=== PATIENT | female | born 1990 | race Caucasian/White ===

== ENCOUNTER → 2016-06-06 | Outpatient (CLI) | payer BC, OTHER ==
[~2016-06-06] MED LIST: ADVIN25/60 INH; ALBUAER19 INH; CYAN10005 PO; ERGO1CAP35 PO
== END | disposition home or self-care (01) ==
LOC: C.RDSM 16:30
PROVIDERS: ATTEND Orthopaedic Surgery Sports Medicine
DX: M79.644 Pain in right finger(s) (principal)

== ENCOUNTER → 2016-06-13 | Outpatient (CLI) | payer BC, OTHER | END | disposition home or self-care (01) | LOC: C.LAB 16:51 | PROVIDERS: ATTEND Internal Medicine | DX: R94.6 Abnormal results of thyroid function studies (principal) ==

== ENCOUNTER → 2016-12-20 | Outpatient (CLI) | payer BC, OTHER ==
--- NOTE | 2016-12-20 14:05 | DIAGNOSTIC IMAGING REPORT ---
LEFT FOOT MIN 3 VIEWS CLINICAL HISTORY: LEFT FOOT PAIN pain COMPARISON: None. DISCUSSION: The bones and joint spaces appear intact. There is no evidence of fracture, dislocation or bony disease. There is no evidence for soft tissue swelling. IMPRESSION: Negative study. The above report was generated using voice recognition software. It may contain grammatical, syntax or spelling errors. Electronically signed by: Will Crisostomo M.D. 12/20/2016 2:04 PM Dictated Date/Time: 12/20/2016 2:04 PM
== END | disposition home or self-care (01) ==
LOC: C.RDSM 12:21
PROVIDERS: ATTEND Internal Medicine
DX: M79.672 Pain in left foot (principal)

== ENCOUNTER → 2017-04-13 | Outpatient (CLI) | payer OTHER ==
--- NOTE | 2017-04-13 19:19 | DIAGNOSTIC IMAGING REPORT ---
L RIBS UNILATERAL WITH PA CHEST CLINICAL HISTORY: 26 years-old Female presenting with LUMP OF LEFT RIB. TECHNIQUE: Frontal and oblique views of the left ribs as well as PA view of the chest were obtained. COMPARISON: 12/11/2014. FINDINGS: Cardiomediastinal silhouette normal. Lungs and pleural spaces clear. Osseous structures intact. Specifically, no displaced left rib fracture. Upper abdomen normal. IMPRESSION: 1. No displaced left for fracture. 2. No acute cardiopulmonary disease. Electronically signed by: Kamaljit Hutson M.D. 04/13/2017 7:17 PM Dictated Date/Time: 04/13/2017 7:14 PM
== END | disposition home or self-care (01) ==
LOC: C.RAD 18:45
PROVIDERS: ATTEND Internal Medicine
DX: M89.9 Disorder of bone, unspecified (principal)

== ENCOUNTER → 2017-04-19 | Outpatient (CLI) | payer OTHER ==
--- NOTE | 2017-04-19 07:24 | DIAGNOSTIC IMAGING REPORT ---
CHEST/ABDOMINAL WALL (US) CLINICAL HISTORY: Palpable abdominal/chest wall mass. COMPARISON STUDY: No previous studies for comparison. FINDINGS: The patient reports a palpable mass along the lower left ribs. No corresponding ultrasound mass was visualized. IMPRESSION: The reported palpable mass along the left lower rib cage, was not visualized ultrasonographically. Electronically signed by: Arnie Esuqeda M.D. 04/19/2017 7:23 AM Dictated Date/Time: 04/19/2017 7:21 AM
== END | disposition home or self-care (01) ==
LOC: C.ULTR 06:45
PROVIDERS: ATTEND Internal Medicine
DX: M89.9 Disorder of bone, unspecified (principal)

== ENCOUNTER → 2017-04-21 | Outpatient (CLI) | payer OTHER ==
[2017-04-21 10:28] LABS: LYME DISEASE AB IGG NEG (NEG); LYME DISEASE AB IGM NEG (NEG)
== END | disposition home or self-care (01) ==
LOC: C.LAB 07:51
PROVIDERS: ATTEND Physician Assistant
DX: S30.860A Insect bite (nonvenomous) of lower back and pelvis, initial encounter (principal); W57.XXXA Bitten or stung by nonvenomous insect and other nonvenomous arthropods, initial encounter

== ENCOUNTER → 2017-12-27 | Outpatient (CLI) | payer OTHER ==
[~2017-12-27] MED LIST changes: +LIDO1PAD2 TD; +OXYC-57 PO; +PRED20TA PO
--- NOTE | 2017-12-27 13:46 | DIAGNOSTIC IMAGING REPORT ---
SOFT TISS HEAD/NECK-THYROID HISTORY: Nodule THYROID NODULE COMPARISON: 12/15/2017 FINDINGS: Evaluation of the right thyroid lobe at the site of a prior biopsy as well as the inferior parathyroid nodularity was performed. All findings are somewhat diminished. The right thyroid lobe finding in particular is diminished in prominence. Given this improvement, as well as what appears be a prior benign biopsy of the region, the patient elected to defer biopsy of which is felt to be reasonable. Follow-up ultrasound in one year is suggested as conservative alternative IMPRESSION: 1. Improved nodularity of the right inferior thyroid as well as a parathyroid nodularity. 2. Given this improvement, the patient elected to have a twelve-month ultrasonic follow-up rather than a repeat biopsy of the region. The above report was generated using voice recognition software. It may contain grammatical, syntax or spelling errors. Electronically signed by: Will Crisostomo M.D. 12/27/2017 1:44 PM Dictated Date/Time: 12/27/2017 1:42 PM
== END | disposition home or self-care (01) ==
LOC: C.ULTR 12:39
PROVIDERS: ATTEND Otolaryngology
DX: E04.2 Nontoxic multinodular goiter (principal)

== ENCOUNTER 2018-01-17 08:46 | Emergency (ER) | payer OTHER ==
[~2018-01-17] VITALS: Ht 167.6 cm; Wt 128.5 kg
[~2018-01-17 08:46] MED LIST changes: -ALPR0.25 PO; -BREX1TAB6 PO; -ONDA4TAB46 PO; -SERT25TA PO; -VNTHFA/IN INH
[2018-01-17 08:53] VITALS: TEMP 36.9; Ht 167.6 cm; Wt 128.5 kg
[2018-01-17] MEDS ORDERED: METHYLPREDNISOLONE 125 MG VIAL IV STA (09:23)
[2018-01-17] MEDS ORDERED: ONDANSETRON 4MG OD TAB PO STA (09:23)
[2018-01-17] MEDS ORDERED: GI COCKTAIL PO STA (09:23)
--- NOTE | 2018-01-17 09:23 | EMERGENCY ROOM VISIT NOTE ---
ED Visit Note First contact with patient: 09:00 Resident Physician Supervision Note: I interviewed and examined the patient. Discussed with Dr. Plata and agree with findings and plan as documented in the note. Documented By: Mario Alberto Wall Problem List Medical Problems: (1) Diabetes mellitus Status: Chronic Surgical Problems: (1) Status post Skye fundoplication (without gastrostomy tube) procedure Status: Resolved Current/Historical Medications Scheduled Cyanocobalamin (Vitamin B-12), 1,000 MCG PO DAILY Ergocalciferol (Vitamin D Cap), 50,000 INTER.UNIT PO MONTHLY Fluticasone Prop/Salmeterol (Advair Diskus 250/50 60 Dose), 1 PUFF INH QAM Prednisone (Prednisone), 0 PO DAILY Scheduled PRN Albuterol Inhaler (Ventolin Inhaler), 2 PUFFS INH Q4 PRN for SOB/Wheezing Lidocaine (Lidocaine), 1 PATCH TD QD PRN for Pain Oxycodone/Acetaminophen 5MG/325MG (Percocet 5MG/325MG), 1 TAB PO Q4-6H PRN for Pain Allergies Coded Allergies: Erythromycin (Verified Allergy, Unknown, upset stomach, 01/02/15) Ciprofloxacin (Verified Adverse Reaction, Intermediate, upset stomach, ) Vital Signs Date Time Temp Pulse Resp B/P (MAP) Pulse Ox O2 Delivery O2 Flow Rate FiO2 01/17/18 08:53 36.9 79 20 159/94 97 Room Air Departure Information Referrals Garcia Dooley M.D. (PCP) Patient Instructions My [facility]
[2018-01-17] MEDS ORDERED: LIDOCAINE HCL 2% VISC SOLN 20 ML UDC ONE (09:29)
[2018-01-17] MEDS ORDERED: ALUMINUM/MAGNESIUM SUSP 30 ML UDC ONE (09:29)
--- NOTE | 2018-01-17 09:33 | EMERGENCY ROOM VISIT NOTE ---
History First contact with patient: 09:04 Chief Complaint: ALLERGIC REACTION Stated Complaint: MED REACTION Nursing Triage Summary: pt states hx of nissin fundiplication. 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 pt states face felt flushed as well. denies sob, cp, or lance. History of Present Illness The patient is a 27 year old female with a PMHX of Skye Fundoplication, Asthma (not on controller meds) and various mood disorders who presents to the Emergency Room with complaints of facial flushing and a globus sensation after her barium swallow earlier this morning. Pt went to the pharmacy and got an OTC antihistamine which didn't help her symptoms. She denies SOB. She presents with her mom and an aunt who corroborate the history. Pt also reports mild GI discomfort after drinking the barium swallow. She has not had anything to eat today but did drink some team. No vomiting or diarrhea. No recent BM. Never had a barium swallow before. SHx: Lives in [place], is an front office attendant in [employer]. Review of Systems See HPI for pertinent positives and negatives. A total of ten systems were reviewed and were otherwise negative. Constitutional: No fever, No chills Eyes: No worsening of vision ENT: No hearing loss Respiratory: No cough, No sputum, No wheezing, No shortness of breath, No dyspnea on exertion Cardiovascular: No chest pain Abdomen: + nausea, No pain, No vomiting, No diarrhea, No constipation Musculoskeletal: No joint pain Genitourinary - Female: No dysuria, No urinary frequency, No urinary urgency , No urinary incontinence Neurologic: No memory loss Psychiatric: No depression symptoms Endocrine: No fatigue Past Medical/Surgical History Medical Problems: (1) Anxiety State Nos (2) Depressive Disorder Nec (3) Diabetes mellitus (4) Diaphragmatic Hernia (5) Dysmetabolic Syndrome X (6) Reflux Esophagitis Surgical Problems: (1) Status post Skye fundoplication (without gastrostomy tube) procedure Family History Diabetes mellitus Seizures GRANDMOTHER (Paternal grandmother) Aunt Social History Smoking Status: Never Smoker Alcohol Use: none Drug Use: none Marital Status: single Occupation Status: employed Current/Historical Medications Scheduled Alprazolam (Xanax), 0.25 MG PO BID Brexpiprazole (Rexulti), 4 MG PO DAILY Sertraline (Zoloft), 25 MG PO DAILY Scheduled PRN Albuterol Hfa (Ventolin Hfa), 2 PUFFS INH Q6H PRN for Shortness of Breath Ondansetron Hcl (Zofran), 4 MG PO UD PRN for Nausea Physical Exam Vital Signs Date Time Temp Pulse Resp B/P (MAP) Pulse Ox O2 Delivery O2 Flow Rate FiO2 01/17/18 10:08 78 18 122/69 97 Room Air 01/17/18 08:53 36.9 79 20 159/94 97 Room Air Physical Exam Gen: No acute distress. HEENT: Head - normocephalic and atraumatic. Pupils are equal, round, and reactive to light. Extraocular eye muscles are intact and sclera are anicteric. Ears - bilaterally patent canals with noninjected tympanic membranes and no evidence of hemotympanum. Nose - moist nasal mucosa without discharge. Mouth - moist buccal mucosa. Oropharynx is nonerythematous and there is no tonsillar exudate or edema noted. There is no tightening of the oropharynx. Neck: Supple; no JVD, nuchal rigidity, cervical lymphadenopathy, or auscultated bruits. Heart: Regular rate and rhythm. There is a normal S1 and S2 with no murmurs, clicks, or gallops appreciated. Lungs: Clear to auscultation bilaterally with no wheezes, rales, or rhonchi. Abdomen: Soft, moderate tenderness to deep palpation of the RUQ, nondistended, with good bowel sounds. There are no palpable pulsatile masses or hepatosplenomegaly. There is no guarding, rigidity, or rebound noted. Extremities: No evidence of cyanosis, clubbing, or edema. There are easily palpable peripheral pulses. SKIN: Face is diffusely flushed. [edit: 1hr After administration of IV steroids flushing went away.] Neuro:The patient is awake and alert, oriented to day, time, and place. Muscle strength is 5/5 in all 4 extremities. The patient has equal audio visual director strength and equal pedal push and pull. There are no cerebellar signs. Medical Decision & Procedures Medications Administered Medications (Trade) Dose Ordered Sig/Bhaskar Route Start Time Stop Time Status Last Admin Dose Admin Methylprednisolone Sodium Succinate (Solu-Medrol IV) 125 mg NOW STAT IV 01/17/18 09:23 01/17/18 09:24 DC 8/15/18 09:23 125 MG Ondansetron HCl (Zofran Odt) 4 mg NOW STAT PO 01/17/18 09:23 01/17/18 09:24 DC 01/17/18 09:23 4 MG Miscellaneous Medication (Gi Cocktail) 24 ml ONE STAT PO 01/17/18 09:23 01/17/18 09:24 DC 01/17/18 09:23 24 ML Sodium Chloride 1,000 ml @ 999 mls/hr Q1H1M STAT IV 01/17/18 10:01 01/17/18 11:01 01/17/18 10:10 999 MLS/HR Medical Decision The patient's care and disposition was discussed with Dr. Wall, Attending ED Physician. This is a 27F with facial flushing. Differential diagnosis include anaphylaxis , allergic reaction, sepsis, contact dermatitis, rosacea. Triage Nursing notes were reviewed. ED Course included an extensive history and physical exam. 9:00am - Pt was examined and case was discussed with Dr. Wall. Orders for 125mg IV Solu Medrol, Barium Swallow and 4mg ODT Zofran were placed. 10:00am - Pt was re-examined and states she is feeling better. She will be discharged in good condition with a work excuse note for one day. 10:30am - Pt informed us that she would rather not be on Prednisone. (The plan for was for a 5 day taper). We discussed at length the warning signs of worsening allergic reaction. Pt agreed to take PO Benadryl every night and to pay close attention to a worsening of her symptoms. Advised pt to return to the ER if she experiences a worsening of any of her symptoms or experiences new onset SOB, chest pain or any inability to breath. The pt was informed about the findings as listed above. All questions were answered. Return instructions were outlined and the patient was discharged in good condition. The patient was referred to PCP for recheck of the current condition. Head Trauma GCS Score: 15 Impression Primary Impression: Flushing reaction Departure Information Dispostion Home / Self-Care Condition GOOD Forms HOME CARE DOCUMENTATION FORM, Work Instructions, Return To Work: 1 day Additional Instructions: Please excuse Cyn from work on 01/17/2018. IMPORTANT VISIT INFORMATION Patient Instructions [facility] Work Instructions Return To Work: 1 day Additional Work Instructions: Please excuse Cyn from work on 01/17/2018. Resident Involvement: Resident Care Provided Care Provided: Adult ED
[2018-01-17] MEDS ORDERED: VNTHFA/IN INH (09:51)
[2018-01-17] MEDS ORDERED: SERT25TA PO (09:51)
[2018-01-17] MEDS ORDERED: ALPR0.25 PO (09:51)
[2018-01-17] MEDS ORDERED: BREX1TAB6 PO (09:51)
[2018-01-17] MEDS ORDERED: ONDA4TAB46 PO (09:51)
[2018-01-17] MEDS ORDERED: SODIUM CHLORIDE 0.9% 1000ML 1,000 ML IV STA (10:01)
[2018-01-17 10:08] VITALS: BP 122/69; PULSE 78; O2SAT 97
== END 2018-01-17 10:35 | disposition home or self-care (01) ==
LOC: C.EDB 08:46
DX: R23.2 Flushing (principal); R10.11 Right upper quadrant pain; F45.8 Other somatoform disorders; K44.9 Diaphragmatic hernia without obstruction or gangrene; K21.0 Gastro-esophageal reflux disease with esophagitis; F41.8 Other specified anxiety disorders; E11.9 Type 2 diabetes mellitus without complications; Z79.899 Other long term (current) drug therapy

== ENCOUNTER → 2018-01-17 | Outpatient (CLI) | payer OTHER ==
[~2018-01-17] MED LIST changes: +ALPR0.25 PO; +BREX1TAB6 PO; +ONDA4TAB46 PO; +SERT25TA PO; +VNTHFA/IN INH
--- NOTE | 2018-01-17 08:09 | DIAGNOSTIC IMAGING REPORT ---
DOUBLE CONTRAST UPPER GI SERIES CLINICAL HISTORY: Gastric esophageal reflux disease. Vomiting. Hoarseness. History of previous Skey fundoplication. COMPARISON STUDY: Upper GI series dated 03/19/2010. Abdominal CT dated 12/31/2013. TECHNIQUE: A standard air contrast upper GI series was performed. Spot images of the esophagus and stomach were obtained in multiple obliquities both upright and prone. FINDINGS: The patient swallowed barium without difficulty. The esophagus is structurally normal without evidence of intrinsic or extrinsic mass. The esophageal mucosal pattern is normal. No gastroesophageal reflux was elicited by having the patient perform the Valsalva maneuver. The gastroesophageal junction distends normally. Post fundoplication change is seen in the gastroesophageal junction. The stomach is normal in configuration and demonstrates normal distensibility. No mass or ulceration is identified. There was no evidence of gastritis. The duodenal bulb and sweep are unremarkable. Fluoroscopy time: 2.2 minutes Fluoroscopic images: 22 IMPRESSION: Normal fluoroscopic upper GI examination noting post fundoplication change at the gastroesophageal junction. Electronically signed by: Aaron Cerrato M.D. 01/17/2018 8:08 AM Dictated Date/Time: 01/17/2018 8:05 AM
== END | disposition home or self-care (01) ==
LOC: C.RAD 07:20
PROVIDERS: ATTEND Surgery
DX: K21.9 Gastro-esophageal reflux disease without esophagitis (principal)

== ENCOUNTER 2018-09-26 10:04 | Observation (INO) ==
--- NOTE | 2018-09-18 12:52 | Anesthesiology Consultation ---
Date of Service September 18, 2018 Assessment & Plan (1) Encounter for pre-operative examination: Chart Review Chart Review: Acceptable Risk for Surgery and Patient NOT seen in Pre Admission Testing Consults Requested none History Surgery Operation Date: 09/26/18 12:00 Proposed Procedures p Robotic Redo Laparoscopic Skye Fundoplication Revision - Shun Mendez MD, FACS Height/Weight Height: 5 ft 6 in Weight: 127.913 kg Allergies Allergy/AdvReac Type Severity Reaction Status Date / Time barium sulfate Allergy Swelling Verified 09/17/18 08:35 of Lip/Tongue/Throat Cipro AdvReac Intermediate upset Verified 01/17/18 09:50 stomach ciprofloxacin AdvReac Intermediate upset Verified 09/17/18 08:35 stomach Penicillins AdvReac Intermediate Itchiness Verified 09/17/18 08:35 erythromycin base AdvReac Mild upset Verified 09/17/18 08:35 stomach Medications Home Medications Medication Instructions Recorded Confirmed Last Taken sertraline [Zoloft] 50 mg PO QAM 04/16/18 09/17/18 05/06/18 07:15 estradiol 1 mg PO QAM 04/30/18 09/17/18 05/06/18 07:15 ranitidine HCl 150 mg PO QPM 04/30/18 09/17/18 04/30/18 hydroxyzine pamoate 25 mg PO HS 06/29/18 09/17/18 Unknown brexpiprazole [Rexulti] 1 mg PO QAM 08/13/18 09/17/18 Unknown ergocalciferol (vitamin D2) 50,000 units PO WK 08/13/18 09/17/18 Unknown [Vitamin D2] sumatriptan succinate 50 mg PO DIRECTED PRN 08/13/18 09/17/18 Unknown alprazolam 0.25 mg PO TID PRN 09/07/18 09/17/18 Unknown bupropion HCl 100 mg PO QAM 09/07/18 09/17/18 Unknown topiramate 50 mg PO BID 09/07/18 09/17/18 Unknown albuterol sulfate [Ventolin HFA] 2 puff INHALATION Q6H PRN 09/14/18 09/17/18 Unknown brexpiprazole [Rexulti] 1.5 mg PO QPM 04/12/19 04/15/19 Unknown omeprazole 20 mg PO QPM 09/14/18 09/17/18 Unknown Past Medical History Medical History Anxiety Asthma RESCUE INHALER USED MANY WEEKS AGO Bipolar disorder Depression GERD (gastroesophageal reflux disease) Hx gestational diabetes Migraine Morbid obesity Post traumatic stress disorder Past Family History Family History Family/Other Family history of diabetes mellitus Past Surgical History Surgical History History of Skye fundoplication 2013 History of appendectomy History of bilateral tubal ligation History of colonoscopy History of esophagogastroduodenoscopy (EGD) History of surgical removal of ganglion cyst LEFT FOOT History of tonsillectomy History of tooth extraction Hx of total hysterectomy Social History Smoking Status: Never smoker Do You Dip or Chew Tobacco: No Hx Alcohol Use: No Hx Substance Use: Yes (HAS MEDICAL MARIJUANA CARD - RARELY SMOKES) substance use type: does not use Testing Electrocardiogram Date: 09/07/18 Findings: + NSR @ (65 bpm) Right ventricular conduction delay Chest X-Ray Date: 06/29/18 Findings: + NAD Laboratory Results Laboratory Tests 09/07/18 09/07/18 11:24 11:24 WBC 9.14 Hgb 13.7 Plt Count 215 Sodium 142 Potassium 3.7 Chloride 113 H Carbon Dioxide 23 BUN 9 Creatinine 0.91 Glucose 89
[~2018-09-26 10:04] MED LIST changes: -ADVIN25/60 INH; -ALBUAER19 INH; -CYAN10005 PO; -ERGO1CAP35 PO; -LIDO1PAD2 TD; +LR 15ML/HR IV SCH; +MIDAZOLAM HCL 1 MG/ML 2ML VIAL ONE; -OXYC-57 PO; -PRED20TA PO; +fentaNYL citrate 100 MCG/2 ML VIAL ONE
[2018-09-26] MEDS ORDERED: BUPIVACAINE 0.5 % 5 MG/1 ML MPF 30ML VIAL ONE (11:17)
[2018-09-26] MEDS ORDERED: BUPIVACAINE LIPOSOME 1.3% 266 MG/20 ML VIAL ONE (11:17)
[2018-09-26] MEDS ORDERED: SODIUM CHLORIDE 0.9% PF 50 ML VIAL ONE (11:17)
--- NOTE | 2018-09-26 11:27 | History & Physical Bridge Note ---
Date of Service September 26, 2018 History & Physical Bridge Note I have examined the patient, reviewed the History & Physical and in the interval since the performance of the History & Physical I have noted the following changes of clinical significance: no changes noted
[2018-09-26] MEDS ORDERED: CLINDAMYCIN PHOS 300 MG/2 ML VIAL ONE (12:15)
[2018-09-26] MEDS ORDERED: PHENYLEPHRINE HCL 10 MG/ML VIAL ONE (12:28)
[2018-09-26] MEDS ORDERED: NEOSTIGMINE METHYLSULFATE 5 MG/5 ML SYR ONE (12:28)
[2018-09-26] MEDS ORDERED: GLYCOPYRROLATE 0.2 MG/ML VIAL ONE (12:28)
[2018-09-26] MEDS ORDERED: ePHEDrine sulfate 50 MG/ML SYR ONE (12:28)
[2018-09-26] MEDS ORDERED: ROCURONIUM BROMIDE 10 MG/ML 5 ML VIAL ONE ×2 (12:28→14:55)
[2018-09-26] MEDS ORDERED: DEXAMETHASONE SOD INJ 4 MG/ML VIAL ONE (12:28)
[2018-09-26] MEDS ORDERED: ONDANSETRON INJ 2 MG/ML 2 ML VIAL ONE (12:28)
[2018-09-26] MEDS ORDERED: HYDROmorphone INJ 2 MG/ML SYR/VIAL ONE (12:28)
[2018-09-26] MEDS ORDERED: PROPOFOL IV EMULSION 10 MG/ML 20 ML VIAL IV ONE (12:28)
[2018-09-26] MEDS ORDERED: LARYING-O-JET KIT (LTA) ONE (12:28)
[2018-09-26] MEDS ORDERED: LIDOCAINE HCL 2% 2 ML VIAL/AMP(20MG/ML) INFIL ONE (12:28)
[2018-09-26] MEDS ORDERED: CLINDAMYCIN 900 MG in DEXTROSE 5% 100 ML IV SCH (13:00)
--- NOTE | 2018-09-26 15:30 | Post Operative Brief Note ---
Immediate Post Op Note v1 Date of Surgery September 26, 2018 Pre & Post Diagnosis Operation Date: 09/26/18 12:00 Pre-Op Diagnosis: Gastroesophageal Reflux Disease Post-Op Diagnosis: Gastroesophageal Reflux Disease, Recurrent small hiatal hernia Procedure Operation Date: 09/26/18 12:00 Actual Procedures p Robotic Laparoscopic Skye Fundoplication Revision, Esophagogastroduodenoscopy(Not Applicable) - Shun Mendez MD, FACS Surgeon Shun Mendez MD, FACS Mind Reader Kelvin RAGSDALE Estimated Blood Loss 10 Findings Consistent with Post-Op Diagnosis Drains Cavanaugh Catheter
[2018-09-26] MEDS ORDERED: NALOXONE HCL 0.4 MG/1 ML VIAL/CARP IV PRN (15:46)
[2018-09-26] MEDS ORDERED: FLUMAZENIL 0.1 MG/1 ML 10 ML VIAL IV PRN (15:46)
[2018-09-26] MEDS ORDERED: PROMETHAZINE HCL 12.5 MG in SODIUM CHLORIDE 0.9% 50 ML IV PRN (15:46)
[2018-09-26] MEDS ORDERED: LABETALOL HCL IV 5 MG/ML 20ML IV PRN (15:46)
[2018-09-26] MEDS ORDERED: ATROPINE SULFATE 0.1 MG/ML 10ML SYR IV PRN (15:46)
[2018-09-26] MEDS ORDERED: ePHEDrine sulfate 50 MG/ML AMP IV PRN (15:46)
[2018-09-26] MEDS ORDERED: METOCLOPRAMIDE HCL INJ 5 MG/ML 2 ML VIAL IV ONE (15:50)
[2018-09-26] MEDS: fentaNYL citrate 100 MCG/2 ML VIAL IV PRN ×4 (16:02→16:17)
--- NOTE | 2018-09-26 16:08 | XRay Report ---
XR chest 1V portable CLINICAL HISTORY: Postop Skye fundoplication COMPARISON STUDY: 06/29/2018 FINDINGS: The heart is normal in size. There is borderline elevation right hemidiaphragm. There is no pneumothorax. There is no free intraperitoneal air. Slightly prominent left basilar markings are lik ferny atelectatic.[ IMPRESSION: No active disease in the chest. Electronically signed by: Arnie Esqueda M.D. 09/26/2018 4:07 PM
--- NOTE | 2018-09-26 16:53 | Anesthesiology Progress Note ---
Date of Service September 26, 2018 Anesthesia Post Procedure Vital Signs Vital Signs: Temp Pulse Pulse Resp BP BP Pulse Ox 09/26/18 16:45 104 H 18 135/84 93 09/26/18 16:35 36.4 C L 106 H 16 150/87 H 93 09/26/18 16:25 36.4 C L 101 H 16 152/89 H 92 09/26/18 16:15 106 H 16 161/92 H 94 09/26/18 16:05 107 H 19 137/89 95 09/26/18 15:55 112 H 19 133/83 99 09/26/18 15:45 36.3 C L 121 H 19 146/84 H 99 09/26/18 10:32 36.5 C 85 20 127/75 98 Notes Mental Status: alert / awake / arousable Patient Amnestic to Procedure: Yes Nausea / Vomiting: adequately controlled Pain: adequately controlled Airway Patency, RR, SpO2: stable & adequate BP & HR: stable & adequate Hydration State: stable & adequate Anesthetic Complications: no major complications apparent
[2018-09-26] MEDS ORDERED: ALPRAZolam 0.25 MG TABLET PO PRN (17:15)
[2018-09-26] MEDS ORDERED: SUMAtriptan succinate 50 MG TAB PO PRN (17:15)
[2018-09-26] MEDS ORDERED: ALBUTEROL HFA 8 GM INHALER INH PRN (17:15)
[2018-09-26] MEDS: D5W AND 1/2NSS 1,000 ML IV SCH (17:49)
[2018-09-26] MEDS: MoRPHine SULFATE 2 MG/ML CARP IV PRN ×2 (17:52→21:46)
[2018-09-26] MEDS: ONDANSETRON INJ 2 MG/ML 2 ML VIAL IV SCH ×2 (18:06→21:42)
[2018-09-26] MEDS: ACETAMINOPHEN 1,000 MG/100 ML VIAL IV SCH (18:06)
[2018-09-26] MEDS: OXYCODONE HCL IR 5 MG TAB (IMMEDIATE RELEASE) PO PRN (20:24)
[2018-09-26] MEDS: DOCUSATE SODIUM 100 MG CAP PO SCH (20:24)
[2018-09-26] MEDS: TOPIRAMATE 50 MG TAB PO SCH (20:24)
[2018-09-26] MEDS ORDERED: PANTOprazole 40 MG TAB PO SCH (21:00)
[2018-09-27] MEDS: METOCLOPRAMIDE HCL INJ 5 MG/ML 2 ML VIAL IV SCH ×2 (00:08→08:53)
[2018-09-27] MEDS: ACETAMINOPHEN 1,000 MG/100 ML VIAL IV SCH ×2 (01:27→10:01)
[2018-09-27] MEDS: ONDANSETRON INJ 2 MG/ML 2 ML VIAL IV SCH ×3 (01:27→10:01)
--- NOTE | 2018-09-27 03:03 | Operative Report ---
DATE OF OPERATION: 09/26/2018 PREOPERATIVE DIAGNOSES: 1. Recurrent gastroesophageal reflux, unresponsive to medical management. 2. Status post laparoscopic Skye fundoplication several years ago. 3. Obesity. 4. Posttraumatic stress disorder. 5. Bipolar disorder. POSTOPERATIVE DIAGNOSES: 1. Recurrent hiatal hernia. 2. Status post laparoscopic Skye fundoplication several years ago. 3. Obesity. 4. Posttraumatic stress disorder. 5. Bipolar disorder. PROCEDURE PERFORMED: 1. Robotic-assisted reoperative laparoscopic revision of fundoplication with takedown of prior Skye fundoplication. 2. Repair of recurrent hiatal hernia. 3. Reinforcement of crural repair using OviTex bioabsorbable mesh. 4. Skye fundoplication. 5. Upper endoscopy under anesthesia. SPECIFICS OF PROCEDURE: This is a very nice 28-year-old female who underwent a laparoscopic Skye fundoplication several years ago and did well for several years but noted in the last year and especially in the last several months she is absolutely miserable with her gastroesophageal reflux. It is unresponsive to medical management. Interestingly enough, the CT scan did not show evidence of hernia and on a barium swallow her wrap looked to be intact; however, she had marked reflux on the swallow. Given this, we elected to proceed with a re-repair. The patient was markedly symptomatic. On 09/26/2018, the patient underwent an uncomplicated robot-assisted reoperative laparoscopic takedown of her repair. I took down the repair and the fundus was a bit macerated both anteriorly and posteriorly where the repair had been and I wedged this out using Endo-TERRI stapler on both sides. This looked much better when we finished. I was also surprised to see that she had a hiatal hernia. She did not have stomach, but she had fat and I excised this and freed up all the attachments. I then did a Skye fundoplication. Afterwards, I did an upper endoscopy and the scope went through the repair nicely but it could be seen that she had a nice fundoplication. We also did not have evidence of a leak. She tolerated it well with negligible blood loss and was extubated in the room. DESCRIPTION OF PROCEDURE: The patient brought to the operating room and laid in supine position. General anesthesia induced, endotracheal intubation was performed with single lumen tube. After appropriate timeout had been called and antibiotics given, the patient was prepped and draped in the usual sterile fashion. A 5-mm port was placed in the midline a few centimeters above the umbilicus. We got into the peritoneal cavity without difficulty under guidance with the scope in place inside the port. We insufflated CO2 and we could see quite nicely there was very little in the way of any adhesions. An 8-mm port was placed in the midclavicular line on both sides near the costal margin on the left and down a bit further on the right closer to the umbilical area. I placed a 5-mm port laterally inferiorly on the left for a 5-mm thoracic grasper and a bit more superior for our Pretzel liver retractor. After placing this and retracting the liver up, the patient was then placed in a reverse Trendelenburg. The robot was docked. We had excellent visualization. Upon coming down, there were some omental attachments and we took these down from around the diaphragm. I quickly came down upon the right choco which was a bit surprising I was able to do a good deal of dissection and was surprised to see that there was a hiatal hernia and it contained significant amount of fat. I reduced all this to remove some of the sac. This freed up the esophagus nicely. It should be noted we had a good length of intra-abdominal esophagus. Care was taken to avoid injury to the posterior and anterior vagus nerves. After freeing up all of the adhesions on the right side including in the retroesophageal area and a portion of the left choco, we then retracted the stomach to the right and took down adhesions of the wrap to the diaphragmatic crura to the liver and posteriorly and got around the esophagus quite nicely. I also dissected out and removed the gastroesophageal fat pad. I then could see the wrap quite nicely and took this down essentially completely. However, the anterior and posterior fundus, which were part of the wrap were very macerated and ended up firing Endo-TERRI stapler both to the left and the right to remove a portion of the stomach on either side. This worked very nicely. The gastroesophageal junction was very nicely exposed. I then took down a few more of the short gastrics using the vessel sealer. We had plenty of length. I re-repaired the esophagus using a single [id number] 0 silk. I then placed a single simple 0 silk. We did not make this too tight. An OviTex bioabsorbable patch was then selected and cut to length. I left a small 3 x 3 cm patch to reinforce our crural repair. I was then able to easily bring the posterior fundus back around again. We then measured this out and I created a Skye fundoplication. I placed 3 separate sutures. The first suture was just into the anterior and posterior fundus. I was then able to easily put [address]. This was done with 2-0 silk and I incorporated the esophagus in the anterior and the posterior fundus. This laid very nicely under no tension. I placed a single 2-0 silk suture to the fundus and the anterior crura. It was done under no tension. We then undocked the robot, put the patient back in the supine position and I did an upper endoscopy. She has a small mouth, but we were able to use a bite block to get into the esophagus rather easily. Upon going down, it could be seen that the esophagus really did not have evidence of much in the way of esophagitis. Upon going through the hiatus, it was not tight at all. I was able to get my scope in without difficulty and I went back and forth a few times. Upon entering the stomach, I retroflexed and could see a nice fundoplication. We suctioned out the stomach and I placed the scope right at the GE junction and insufflated air under laparoscopic guidance. Warm saline was injected around the repair site. We saw no evidence of any air and I suctioned out the stomach again and removed the gastroscope. A #1 PDS was used to close the camera port and the hospital nursing assistant's port. A 4-0 Monocryl was then used in running subcuticular fashion to approximate the wound edges. The patient tolerated well, was transported back to the postanesthesia care unit in stable condition. I attest to the content of the Intraoperative Record and any orders documented therein. Any exception s are noted below.
[2018-09-27] MEDS: D5W AND 1/2NSS 1,000 ML IV SCH (04:06)
[2018-09-27] MEDS: OXYCODONE HCL IR 5 MG TAB (IMMEDIATE RELEASE) PO PRN (05:07)
[2018-09-27] MEDS: MoRPHine SULFATE 2 MG/ML CARP IV PRN (07:19)
[2018-09-27 07:35] LABS: Partial Thromboplastin Ratio 0.9; Partial Thromboplastin Time 25.1 Seconds (21.0-31.0); Prothrombin Time 10.3 Seconds (9.0-12.0)
[2018-09-27 07:52] LABS: Creatinine Clr Calc Pharmacy 128.4 ml/min; Est GFR (African American) 103.6; Est GFR (Non-African American) 89.4
--- NOTE | 2018-09-27 08:12 | Anesthesiology Progress Note ---
Date of Service September 27, 2018 Anesthesia Post Procedure Vital Signs Vital Signs: Temp Pulse Pulse Resp BP BP Pulse Ox 09/27/18 05:05 37.0 C 93 H 16 138/80 92 09/27/18 03:00 37.4 C 107 H 16 118/69 92 09/27/18 01:00 37.8 C H 111 H 18 102/68 91 09/26/18 23:05 37.7 C H 107 H 18 110/58 L 91 09/26/18 21:04 37.9 C H 115 H 18 120/69 93 09/26/18 20:04 37.8 C H 113 H 18 102/55 L 90 09/26/18 19:09 37.3 C 114 H 18 125/70 93 09/26/18 18:04 37.2 C 111 H 18 137/76 97 09/26/18 17:31 37.2 C 107 H 18 128/74 94 09/26/18 17:10 37.3 C 106 H 18 139/74 93 09/26/18 16:45 104 H 18 135/84 93 09/26/18 16:35 36.4 C L 106 H 16 150/87 H 93 09/26/18 16:25 36.4 C L 101 H 16 152/89 H 92 09/26/18 16:15 106 H 16 161/92 H 94 09/26/18 16:05 107 H 19 137/89 95 09/26/18 15:55 112 H 19 133/83 99 09/26/18 15:45 36.3 C L 121 H 19 146/84 H 99 09/26/18 10:32 36.5 C 85 20 127/75 98 Pain Intensity Left Abdomen: Pain Intensity: 2 Notes Mental Status: alert / awake / arousable and participated in evaluation Nausea / Vomiting: adequately controlled Pain: adequately controlled Airway Patency, RR, SpO2: stable & adequate BP & HR: stable & adequate Hydration State: stable & adequate
[2018-09-27] MEDS ORDERED: ENOXAPARIN INJ 40 MG/0.4 ML SYR SQ SCH (09:00)
[2018-09-27] MEDS ORDERED: BuPROPion SR 100 MG TABCR PO SCH (09:00)
[2018-09-27] MEDS ORDERED: SERTRALINE HCL 50 MG TABLET PO SCH (09:00)
[2018-09-27] MEDS ORDERED: ESTRADIOL 1 MG TAB PO SCH (09:00)
[2018-09-27] MEDS: TOPIRAMATE 50 MG TAB PO SCH (10:00)
[2018-09-27] MEDS: DOCUSATE SODIUM 100 MG CAP PO SCH (10:00)
--- NOTE | 2018-09-27 22:10 | Discharge Summary ---
DISCHARGE DIAGNOSES: 1. Recurrent hiatal hernia with gastroesophageal reflux disease. 2. Status post laparoscopic Skye fundoplication several years ago. HOSPITAL COURSE: Cyn is a 28-year-old with multiple issues including a bipolar disorder but had terrible gastroesophageal reflux disease and underwent a laparoscopic Skye fundoplication several years ago. She did well with this for several years until the last few months when her reflux worsened rather dramatically and was unresponsive to medical management. Study showed she did have reflux although her wrap actually appeared to be fairly intact. Elected to proceed with surgery as she was quite miserable. On 09/26/2018, the patient underwent an uncomplicated robot-assisted reoperative laparoscopic takedown of her prior repair with re-repair of her hiatal hernia and reinforcement with a bioprosthetic mesh. A Skye fundoplication was done without difficulty. She tolerated it well and her upper endoscopy looked quite good at the conclusion of the case. We watched her overnight and she was ambulating on the night of surgery. She was tolerating liquids without difficulty and did not have any signs or symptoms of reflux for which she was quite grateful. She was discharged home on postop day 1. We will see her back in the office next week with a Gastrografin swallow.
--- OUTSIDE RECORDS SUMMARY | 2018-10-01 20:19 | External Medical Summary | Continuity of Care Document ---
:1990 Author Name Thi Valdez, Provider Address Unavailable Unavailable , Care Team Providers Name Role Phone Unavailable Unavailable Unavailable Terra Bustos Unavailable [email or web address] Traylor PA-C Unavailable [email or web address] Keven Valdez Unavailable [email or web address] Rick Dooley M.D.. Unavailable [email or web address] Rick DOOLEY M.D. Unavailable Unavailable Antolin Rivera Unavailable Unavailable Unavailable Unavailable Unavailable Problems Fatigue (780.79) (R53.83) Snoring (786.09) (R06.83) Painful hand (729.5) (M79.643) Sensation of lump in throat (784.99) (R22.1) Multiple thyroid nodules (241.1) (E04.2) Nausea and vomiting (787.01) (R11.2) Thyroid nodule (241.0) (E04.1) Toe pain (729.5) (M79.676) Foot pain (729.5) (M79.673) Foot swelling (729.81) (M79.89) Influenza A (487.1) (J10.1) Left arm weakness (729.89) (R29.898) Neck pain (723.1) (M54.2) Abdominal pain, epigastric (789.06) (R10.13) Asthma (493.90) (J45.909) Back pain (724.5) (M54.9) Cough (786.2) (R05) Abnormal thyroid blood test (790.6) (R79.89) Morbid obesity (278.01) (E66.01) BMI 40.0-44.9, adult (V85.41) (Z68.41) Left ankle pain (719.47) (M25.572) Migraine without aura, intractable (346.11) (G43.019) Atypical nevi (216.9) (D22.9) Lump of rib (733.90) (M89.9) Altered glucose metabolism (790.29) (R73.09) Adverse reaction to drug (E947.9) (T50.905A) Anxiety (300.00) (F41.9) Vulvovaginitis (616.10) (N76.0) Asthmatic bronchitis (493.90) (J45.909) History of endometriosis (V13.29) (Z87.42) Pelvic pain (R10.2) Dyspareunia (625.0) Felon (681.01) (L03.019) Depression (311) (F32.9) Vitamin D deficiency (268.9) (E55.9) Obesity (278.00) (E66.9) Dizziness (780.4) (R42) Headache (784.0) (R51) Body aches (780.96) (R52) Irritable bowel syndrome with diarrhea (564.1) (K58.0) Abdominal cramping (789.00) (R10.9) Nonspecific lymphadenitis (289.3) (I88.9) Neck swelling (784.2) (R22.1) Elena rash of groin (112.89) (B37.89) Inverted nipple (611.79) (N64.59) Upper back strain (847.1) (S29.012A) 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 José Miguel Start: 07-Sep-2018 Quantity: 30 Refills: 3 Topiramate 50 MG Oral Tablet; TAKE 1 TABLET twice daily , M .D. Start: 07-Sep-2018 Quantity: 180 Refills: 3 ALPRAZolam 0.25 MG Oral Tablet; TAKE 1 TABLET Daily as need for anxiety , M.D. Start: 07-Sep-2018 Quantity: 30 Refills: 0 Sertraline HCl - 50 MG Oral Tablet; TAKE 1 TABLET DAILY. , M .D. Start: 14-Dec-2017 Quantity: 30 Refills: 4 traMADol HCl - 50 MG Oral Tablet; TAKE 1 TABLET 4 times nicky y PRN pain , M.D. Start: 28-Sep-2018 Refills: 0 raNITIdine HCl - 150 MG Oral Tablet; TAKE 1 TABLET AT BEDTIM E. M.DAbebe Start: 23-Jul-2018 Refills: 0 Estradiol 1 MG Oral Tablet; TAKE 1 TABLET DAILY DIRECTED. , M.D. Refills: 0 Ventolin HFA 108 (90 Base) MCG/ACT Inhal ation Aerosol Solution; INHALE 2 PUFFS 4 times daily PRN BILL Lao Start: 11-Sep-2013 Quantity: 1 18 GM Inhaler Refills: 5 hydrOXYzine HCl - 25 MG Oral Tablet; 1 tablet at bedti José Miguel Freeman Start: 25-May-2018 Quantity: 90 Refills: 1 Tone LOUIS M.D. Start: 02-Dec-2016 Refills: 0 SUMAtriptan Succinate 50 MG Oral Tablet; TAKE 1 TABLET FOR MIGRAINE RELIEF. MAY REPEAT EVERY 2 HOURS. MAX 200MG/DAY. José Mgiuel Dooley Start: 09-Aug-2017 Quantity: 6 Refills: 5 Ondansetron 4 MG Oral Tablet Disintegrat ing; TAKE 1 TABLET 3 times daily PRN for nausea VINCENZO Traylor Start: 14-Dec-2017 Quantity: 30 Refills: 0 Procedures Barium Swallow Date: 27-Sep-2018 History of Dental Surgery Status: Comple gabriel History of Laparoscopy (Diagnostic) Stat us: Completed History of Tubal Ligation Status: Comple gabriel History of BCP ( control pills) Sta tus: Completed initiation History of Abdominal Surgery Status: Com pleted History of Hysterectomy Status: Complete d History of Oophorectomy - Unilateral Sta tus: Completed (Removal Of One Ovary) History of Appendectomy Status: Complete d History of Esophagogastric Status: Compl eted Fundoplasty Skye Fundoplication History of Skye fundoplication Status: Completed laparoscopic History of Esophagogastric Status: Compl eted 26-Sep-2018 0:00 Fundoplasty Skye Fundoplication Immunizations DTaP On: 1988 DTaP On: 1988 OPV On: 1988 OPV On: 1988 DTaP On: 1988 DTaP On: 12-Dec-1989 OPV On: 12-Dec-1989 HIB On: 12-Dec-1989 DTaP On: Oct-1993 OPV On: Oct-1993 Hepatitis B On: 12-Jan-1998 Hepatitis B On: Feb-1998 Hepatitis B On: 15-Jul-1998 DT (pediatric), adsorbed diphtheria and tetanus toxoids, On: 19-May-2004 Td (adult), unspecified formulation On: 19-May-2004 Tdap (Adacel) On: Jun-2008 Fluzone Quadrivalent 0.5 ML Intramuscular Suspension On: Mar PPD On: 01-Jul-2014 8:35 Lot #: [id number], SANOFI PASTEUR Family History Unknown Family Member Family history of Thyroid Disorder (V18.19) Status: Active Comments: Family History Family history of Epilepsy And Recurrent Status: Active Comments: Family History Seizures (V17.2) Family history of Congestive Heart Failure Status: Active Comments: Family History Family history of Diabetes Mellitus (V18.0) Status: Active Comments: Family History aunt Family history of Diabetes Mellitus (V18.0) Status: Active Grandmother Family history of hypertension (V17.49) (Z82.49) Status: Act michelle Social History - Smoking Status Unknown if ever smoked Never smoker Interventions Discussion/SummaryI spoke with Cyn regarding her discharge from [facility]. She was admitted for re-repair of a hiatal hernia. Today she reports she is doing well. We did review and reconcile her medication list. She is following with Dr Mendez and denies the need to follow up in the office at this time. Plan of Treatment Planned Observations Planned Goals not documented Results CT abd pelvis IV con Laboratory: [facility] Diagnostic only (Pending) Imaging [address] [place] MELYSSA 07-Sep-2018 12:34 CT abd pelvis IV con only [facility] MELYSSA Keith [phone] CT Scan Report Patient: CYN DEJESUS Admit Date: MR#: [id number] Address1: [address] [place] [address] Acct ID:[id number] Address2: Date: 1990 [facility] Zip: [place] [address] Age: 28 Location: ED Sex: F Room/Bed: Att Phy: Diagnosis: STOMACH PAIN,NAUSEA,NANCY RRHEA Senia Phy: Garcia Dooley MD Service D ate: 09/07/18 Fam Phy: Interpreting Phy: Aaron Cabrera Admit Phy: Ordering Phy: Malik Art PA cc: CT SCAN OF THE ABDOMEN AND PELVIS WITH IV CONTRAST CLINICAL HISTORY: Epigastric abdominal pain. COMPARISON STUDY: Abdominal CT dated 12/31/2013. TECHNIQUE: Following the IV administration of 94 cc of Optiray 320, CT scan of the abdomen and pelvis is performed from the lung bases to the proximal femora. Images are reviewed in the axial, sagittal, and coronal planes. The examination is performed in a delayed phase of enhancement due to IV malfunction which according second injection. A dose lowering technique was utilized adhering to the principles of ALARA. CT DOSE: 3551.53 mGy.cm FINDINGS: Lung bases: The heart is normal in size and without pericardial effusion. The lung bases are clear. Liver: The contrast-enhanced liver is enlarged, measuring 22.1 cm in length. The liver demonstratesdiffusely diminished attenuation consistent with hepatic steatosis. There is no intrahepatic biliaryductal dilatation. The hepatic veins and portal veins are patent. Gallbladder: Unremarkable. Spleen: Normal in size and attenuation. Pancreas: Unremarkable. Adrenal glands: Unremarkable. Kidneys: The contrast enhanced kidneys are normal in size and without hydronephrosis. The kidneys enhance symmetrically. Abdominal vasculature: The abdominal aorta is normal in course and caliber. Stomach and bowel: There are postoperative changes from previous gastric fundoplication. The duodenum is normal in configuration. No bowel obstruction is seen. The appendix is not identified and reported surgically absent. Peritoneum: There is no intraperitoneal free air or abdominal ascites. Lymphadenopathy: None. Pelvic viscera: The bladder is normal as visualized, and contains a small amount of excreted IV contrast. The uterus is surgically absent. No adnexal lesion is seen. Skeletal structures: No lytic or blastic lesions are seen. There is mild degenerative change at L5-S1. IMPRESSION: 1. There are no acute infectious or inflammatory findings in the abdomen or pelvis. 2. Hepatomegaly and hepatic steatosis. 3. Additional findings as above. Electronically signed by: Aaron Cerrato M.D. 09/07/2018 12:41 PM Dictated: 09/07/18 1234 Transcribed: 09/07/18 1234 Barium Swallow Laboratory: [facility] Diagnostic Imaging [address] [place] [address] 17-Sep-2018 7:53 (BARIUM SWALLOW) ESOPHAGUS [facility], [place] [phone] Fluoroscopy Report Patient: CYN DEJESUS Admit Date: MR#: [id number] Address1: [address] [place] [address] Acct ID:[id number] Address2: Date: 1990 [facility] Zip: [place] [address] Age: 28 Location: [facility] Sex: F Room/Bed: Att Phy: Shun Mendez MD Diagnosis: GERD Senia Phy: Garcia Dooley MD Service D ate: 09/17/18 Fam Phy: Interpreting Phy: Aaron Cabrera Admit Phy: Ordering Phy: Amol Ngo PA-C cc: DOUBLE CONTRAST ESOPHAGRAM CLINICAL HISTORY: Gastroesophageal reflux disease. COMPARISON STUDY: Chest CT dated 08/13/2018. TECHNIQUE: A standard air contrast esophagram is performed. Optiray 300 was used as the patient is reportedly allergic to barium. Multiple spot images of the esophagus are acquired both upright and prone. FINDINGS: The patient swallowed contrast without difficulty. The barium pill was not given. The mucosal pattern is normal. There is no evidence of intrinsic or extrinsic mass lesion. No aspirationwas seen. The gastroesophageal junction distended normally. Gastroesophageal reflux was observed during the examination. Fundoplication change is noted in the stomach. Fluoroscopy time: 1 minute. Fluoroscopic images: 26 IMPRESSION: 1. Gastroesophageal reflux was identified during the examination. 2. Otherwise normal esophagram. Electronically signed by: Aaron Cerrato M.D. 09/17/2018 7:59 AM Dictated: 09/17/18 0753 Transcribed: 09/17/18752 TYPE/SCREEN Hold Laboratory: [facility] Laboratory [address] [place] [address] tel: 26-Sep-2018 10:22 TYPE/SCREEN HOLD PROFILE Run: 09/26/18 1242 Sonia Okeefe Pathology Report Name: CYN DEJESUS Age/Sex: 28/F Location: ASUAcc: [id number] Unit: [id number] Status: REG [facility] Room/Bed:Re09/26/18 Disch: Att Dr: Shun Mendez MD Spec: [id number] Collected: 09/26/182Received: 09/26/18-1029 [facility] Dr: Shun Mendez, [facility] To: Garcia Dooley MDOrd Prods: (NO ORDERED PRODUCTS)Ord Tests: TSQueries: Transfusion of Blood, Platelets, FFP in Past 3 Months? Unknown Test Result Flag Reference Site Blood Type A PosAntibody Screen NEGATIVE Tests : Date Time Order Change Action User09/25/18 1519 [place] NEW 13420 END OF REPORT X-Ray Chest 1 View Laboratory: [facility] Diagnostic Portable Imaging [address] [place] [address] 26-Sep-2018 16:06 X-Ray Chest 1 VW Portable (CXR1P) [facility], [place] [phone] XRay Report Patient: CYN DEJESUS Admit Date: MR#: [id number] Address1: [address] [place] [address] Acct ID:[id number] Address2: Date: 1990 [facility] Zip: [place] [address] Age: 28 Location: [facility] Sex: F Room/Bed: Att Phy: Shun Mendez MD Diagnosis: Gastroesophageal Reflux Disease Senia Phy: Garcia Dooley MD Service D ate: 09/26/18 Fam Phy: Interpreting Phy: Arnie Esqueda MD Admit Phy: Ordering Phy: Amol Ngo PA-C cc: XR chest 1V portable CLINICAL HISTORY: Postop Skye fundoplication COMPARISON STUDY: 06/29/2018 FINDINGS: The heart is normal in size. There is borderline elevation right hemidiaphragm. There is no pneumothorax. There is no free intraperitoneal air. Slightly prominent left basilar markings are likely atelectatic.[ IMPRESSION: No active disease in the chest. Electronically signed by: Arnie Esqueda M.D. 09/26/2018 4:07 PM Dictated: 09/26/18 1606 Transcribed: 09/26/18 1606 PT/INR Laboratory: [facility] Laboratory [address] [facility]. [place] [address] tel: 27-Sep-2018 6:47 Prothrombin Time 10.3 {Seconds} Range: 9.0-12.0 Seconds INR 1.0 Range: 0.9-1.1 PTT Laboratory: [facility] Laboratory [address] [employer] [place] [address] tel: 27-Sep-2018 6:47 PTT PATIENT 25.1 {Seconds} Range: 21.0- 31.0 Seconds Comments: Therapeuti c APTT range is 46.0 - 66.4 seconds PARTIAL THROMBOPLASTIN RATIO 0.9 Creatinine, Serum Laboratory: [facility] Laboratory [address] [employer] [place] [address] tel: 27-Sep-2018 6:47 CREATININE 0.87 mg/dl Range: 0.6-1.2 mg /dl Estimated Creatinine Clearance Range: m l/min 128.4 ml/min Comments: Est. Creat inine Clearance (Mod Cockcroft-Gault) for pharmacydosing purposes. Estimated GFR () Comment s: Units: ml/min per 103.6 1.73 meters squaredT he estimated GFR (CKD-E PI equation) has not be en validatedfor inpatie nt settings and may not be an accurate reflectiono f renal function in critical ly ill patients or those withrapidly changing renal function (e.g. RENE). Estimated GFR (Non- Comments: Uni ts: ml/min per Burmese) 89.4 1.73 meters squaredT he estimated GFR (CKD-E PI equation) has not be en validatedfor inpatie nt settings and may not be an accurate reflectiono f renal function in critical ly ill patients or those withrapidly changing renal function (e.g. RENE). Vital Signs 11-Sep-2018 14:32 Systolic 155 mm[Hg] Diastolic 94 mm[Hg] Heart Rate 97 /min Height 67 in Respiration 18 /min O2 Saturation 93 % Comments: Source: 07-Sep-2018 9:51 Systolic 110 mm[Hg] Comments: Location: LUE; Diastolic 80 mm[Hg] Comments: Location: LUE; Heart Rate 70 /min Comments: Location: L Radial; Respiration 16 /min Weight 278 lb Temperature 98.9 f BSA Calculated 2.33 m2 BMI Calculated 43.54 kg/m2 Encounters Appointment; Shun Mendez M.D. 26-Sep-2018 9:30 Encounter Diagnosis: Problem not documented Appointment; Shun Mendez M.D. 11-Sep-2018 14:30 Encounter Diagnosis: Problem not documented Appointment; Jennifer Wylie PA-C 07-Sep-2018 9:45 Encounter Diagnosis: Problem not documented Appointment; Georgina Mondragon PA-C 23-Jul-2018 14:30 Encounter Diagnosis: Problem not documented Appointment; Page Traylor PA-C 04-Jul-2018 13:00 Encounter Diagnosis: Problem not documented Appointment; Chrissie Baca M.D. 25-May-2018 11:15 Encounter Diagnosis: Problem not documented Appointment; Terra Lao CRNP 28-Feb-2018 15:30 Encounter Diagnosis: Problem not documented Appointment; Deonte Cope III, M.D. 18-Dec-2017 10:30 Encounter Diagnosis: Problem not documented Appointment; Johnie Lacy M.D. 14-Dec-2017 17:40 Encounter Diagnosis: Problem not documented Appointment; Jorge Leavitt III, M.D. 30-Nov-2017 12:30 Encounter Diagnosis: Problem not documented Appointment; Adri Singer PA-C 16-May-2017 9:30 Encounter Diagnosis: Problem not documented Appointment; Adilia Rodas PA-C 20-Apr-2017 15:00 Encounter Diagnosis: Problem not documented Appointment; Johnie Lacy M.D. 13-Apr-2017 18:40 Encounter Diagnosis: Problem not documented Appointment; Terra Lao CRNP 21-Mar-2017 16:30 Encounter Diagnosis: Problem not documented Appointment; Margie Toscano DO 17-Jan-2017 15:00 Encounter Diagnosis: Problem not documented Appointment; Karen Mccoy M.D. 02-Dec-2016 15:30 Encounter Diagnosis: Problem not documented
== END 2018-09-27 11:10 | disposition home or self-care (01) ==
LOC: 3N 10:04 → ASU 10:04

== ENCOUNTER 2024-04-18 10:56 | Inpatient (IN) ==
--- NOTE | 2024-03-01 11:25 | PAT Medication Instructions ---
Medication Instructions Date of Service March 01, 2024 Home Medications Medication Instructions Recorded ondansetron HCl 4 mg tablet 4 mg PO Q8H PRN nausea and 01/31/23 vomiting #90 tabs estradiol 1 mg tablet 1 mg PO QAM #90 tabs 03/17/23 levothyroxine 50 mcg tablet 50 mcg PO QAM #90 tabs 04/18/23 tramadol 50 mg tablet 50 mg PO Q8H PRN pain #10 tabs 02/23/24 cyanocobalamin (vitamin B-12) 1,000 mcg tablet (Vitamin B-12) 1,000 mcg PO UD clonazepam 0.5 mg tablet 0.25 mg PO UD PRN Anxiety lamotrigine 200 mg tablet 200 mg PO QAM methylphenidate HCl 36 mg tablet,extended release 24 hr (Concerta) 36 mg PO BID albuterol sulfate 90 mcg/actuation aerosol inhaler 2 puff inhalation Q4 PRN Shortness Of Breath lamotrigine 100 mg tablet 100 mg PO QAM aripiprazole 15 mg tablet 15 mg PO QAM ondansetron HCl 4 mg tablet 4 mg PO Q8H PRN nausea and vomiting estradiol 1 mg tablet 1 mg PO QAM cholecalciferol (vitamin D3) 25 mcg (1,000 unit) tablet (Vitamin D3) 50 mcg PO QAM levothyroxine 50 mcg tablet 50 mcg PO QAM buspirone 10 mg tablet 20 mg PO QAM tramadol 50 mg tablet 50 mg PO Q8H PRN pain ascorbic acid (vitamin C) 500 mg tablet (Vitamin C) 500 mg PO QAM ferrous sulfate 325 mg (65 mg iron) tablet 325 mg PO Q2D lidocaine 5 % topical patch (Lidoderm) 1 patch topical DAILY PRN Pain sumatriptan succinate 50 mg tablet 50 mg PO UD PRN Migraine Headache Continue as directed lidocaine 5 % topical patch (Lidoderm) 1 patch topical DAILY PRN Pain (Avoid placement near surgery site prior to surgery) ASK your prescriber and surgeon estradiol 1 mg tablet 1 mg PO QAM DO NOT take the morning of surgery cyanocobalamin (vitamin B-12) 1,000 mcg tablet (Vitamin B-12) 1,000 mcg PO UD methylphenidate HCl 36 mg tablet,extended release 24 hr (Concerta) 36 mg PO BID cholecalciferol (vitamin D3) 25 mcg (1,000 unit) tablet (Vitamin D3) 50 mcg PO QAM ascorbic acid (vitamin C) 500 mg tablet (Vitamin C) 500 mg PO QAM ferrous sulfate 325 mg (65 mg iron) tablet 325 mg PO Q2D Take morning of surgery With a small sip of water, OTHERWISE NOTHING TO EAT OR DRINK AFTER MIDNIGHT: clonazepam 0.5 mg tablet 0.25 mg PO UD PRN Anxiety (if needed) lamotrigine 200 mg tablet 200 mg PO QAM albuterol sulfate 90 mcg/actuation aerosol inhaler 2 puff inhalation Q4 PRN Shortness Of Breath (use if needed; please bring rescue inhaler with you to hospital day of surgery if possible) lamotrigine 100 mg tablet 100 mg PO QAM aripiprazole 15 mg tablet 15 mg PO QAM ondansetron HCl 4 mg tablet 4 mg PO Q8H PRN nausea and vomiting (if needed) levothyroxine 50 mcg tablet 50 mcg PO QAM buspirone 10 mg tablet 20 mg PO QAM tramadol 50 mg tablet 50 mg PO Q8H PRN pain (if needed) sumatriptan succinate 50 mg tablet 50 mg PO UD PRN Migraine Headache (if needed) Take evening before surgery clonazepam 0.5 mg tablet 0.25 mg PO UD PRN Anxiety (if needed) methylphenidate HCl 36 mg tablet,extended release 24 hr (Concerta) 36 mg PO BID albuterol sulfate 90 mcg/actuation aerosol inhaler 2 puff inhalation Q4 PRN S hortness Of Breath (if needed) ondansetron HCl 4 mg tablet 4 mg PO Q8H PRN nausea and vomiting (if needed) tramadol 50 mg tablet 50 mg PO Q8H PRN pain (if needed) sumatriptan succinate 50 mg tablet 50 mg PO UD PRN Migraine Headache (if needed) Other Notes If you have any questions please call us at [phone] or [phone] or [phone] or [phone]
--- NOTE | 2024-03-05 10:33 | Anesthesiology Consultation ---
Date of Service March 05, 2024 Assessment & Plan (1) Encounter for pre-operative examination: Infectious disease screening: Per assessment on 03/05/24: No known recent infectious disease contacts or current infectious disease symptoms. Chart Review Chart Review: Acceptable Risk for Surgery and Patient seen in Pre Admission Testing Teaching & Discussion Pre-Anesthesia Teaching/Discussion Notes: Instructed NPO after midnight before surgery,except medications with 15 cc of water. Medication instructions provided according to the PAT guidelines. History Surgery Operation Date: 12/22/23 10:35 Proposed Procedures p L5-S1 Decompression and Fusion With Spinal Cord Monitoring - Cain Kinsey DO Operation Date: 03/27/24 12:35 Proposed Procedures p L5-S1 Decompression and Fusion - Cain Kinsey DO Height/Weight Height: 5 ft 5.5 in Weight: 91.9 kg Allergies Allergy/AdvReac Type Severity Reaction Status Date / Time barium sulfate Allergy Severe Swelling Verified 02/29/24 16:37 of Lip/Tongue/Throat sulfamethoxazole Allergy Severe Rash Verified 03/01/24 10:35 [From Bactrim] trimethoprim [From Bactrim] Allergy Severe Rash Verified 03/01/24 10:35 doxycycline Allergy Intermediate Rash Verified 02/29/24 16:37 Penicillins Allergy Intermediate Itchiness Verified 02/29/24 16:37 fluconazole [From Diflucan] Allergy Lips/face Verified 03/01/24 10:35 swelling Sulfa (Sulfonamide AdvReac Severe Unknown Verified 03/01/24 10:35 Antibiotics) ciprofloxacin AdvReac Intermediate Upset Verified 03/01/24 10:35 stomach erythromycin base AdvReac Intermediate Upset Verified 03/01/24 10:35 stomach NSAIDS (Non-Steroidal AdvReac Intermediate Abdominal Verified 03/01/24 10:35 Anti-Inflamma Pain, "can't take" d/t gastric bypass prednisone AdvReac Intermediate Abdominal Verified 03/01/24 10:35 Pain, "can't take" d/t gastric bypass Medications Home Medications Medication Instructions Recorded Confirmed Last Taken cyanocobalamin (vitamin B-12) 1,000 mcg PO UD 02/17/20 02/29/24 09/11/22 1,000 mcg tablet (Vitamin B-12) clonazepam 0.5 mg tablet 0.25 mg PO UD PRN Anxiety 07/18/20 02/29/24 Unknown lamotrigine 200 mg tablet 200 mg PO QAM 05/05/21 02/29/24 09/13/22 methylphenidate HCl 36 mg 36 mg PO BID 09/07/21 02/29/24 09/13/22 tablet,extended release 24 hr (Concerta) albuterol sulfate 90 mcg/actuation 2 puff inhalation Q4 PRN Shortness 09/16/21 02/29/24 Unknown aerosol inhaler Of Breath lamotrigine 100 mg tablet 100 mg PO QAM 08/15/22 02/29/24 09/13/22 aripiprazole 15 mg tablet 15 mg PO QAM 11/26/22 02/29/24 Unknown ondansetron HCl 4 mg tablet 4 mg PO Q8H PRN nausea and 01/31/23 02/29/24 Unknown vomiting #90 tabs estradiol 1 mg tablet 1 mg PO QAM #90 tabs 03/17/23 02/29/24 Unknown cholecalciferol (vitamin D3) 25 50 mcg PO QAM 04/13/23 02/29/24 Unknown mcg (1,000 unit) tablet (Vitamin D3) levothyroxine 50 mcg tablet 50 mcg PO QAM #90 tabs 04/18/23 02/29/24 Unknown buspirone 10 mg tablet 20 mg PO QAM 01/05/24 02/29/24 Unknown tramadol 50 mg tablet 50 mg PO Q8H PRN pain #10 tabs 02/23/24 02/29/24 Unknown ascorbic acid (vitamin C) 500 mg 500 mg PO QAM 02/29/24 02/29/24 Unknown tablet (Vitamin C) ferrous sulfate 325 mg (65 mg 325 mg PO Q2D 02/29/24 02/29/24 Unknown iron) tablet lidocaine 5 % topical patch 1 patch topical DAILY PRN Pain 02/29/24 02/29/24 Unknown (Lidoderm) sumatriptan succinate 50 mg tablet 50 mg PO UD PRN Migraine Headache 02/29/24 02/29/24 Unknown Past Medical History Medical History ADHD (attention deficit hyperactivity disorder), combined type Anxiety Asthma Stable Bipolar disorder Chronic cryptitis of tonsil Chronic low blood pressure Baseline BPs low 100s/50-60s Depression GERD without esophagitis Hypothyroidism Inverted nipple Iron deficiency Irritable bowel syndrome with diarrhea Occasional Low back pain Migraines Multiple thyroid nodules Bx showed it was actually lymph nodes per patient Numbness and tingling of left leg Obsessive compulsive disorder Post traumatic stress disorder Stomach ulcer 07/2022, "resolved" Trichotillomania Exercise / Class Metabolic Activity II 4-5 Yardwork/Stairs/Walk up hill Past Family History Family History Family/Other Family history of diabetes mellitus Unknown Thyroid disorder Congestive heart failure Diabetes Aunt Diabetes Grandmother Hypertension Uncle Myocardial infarction Denies family history of Ovarian cancer Prostate cancer Breast cancer Lung cancer Colorectal cancer Stroke Past Surgical History Surgical History History of abdominal surgery Incisional Exploration with Scar Revision x2, Excision of Abdominal Wall Lipoma (09/09/22): LMA#4 at [facility] [place] History of anesthesia reaction "Shaking" with anesthesia emergence, occasional hypotension History of appendectomy History of bilateral tubal ligation History of colonoscopy History of esophagogastroduodenoscopy (EGD) History of Skye fundoplication 2013 Dr. Mendez History of surgery on left wrist [facility] History of surgical removal of ganglion cyst Left foot History of tonsillectomy History of tooth extraction Hx of total hysterectomy [facility] [place] Nausea and vomiting after administration of anesthetic agent S/P bilateral oophorectomy LSO during hysterectomy, RSO 2016 S/P hammer toe correction right foot Status post gastric bypass for obesity + undo hiatal hernia ([facility] [place] 2019) Past Anesthesia History No Family Hx of Anesthesia Complications and Other ("Shaking" with anesthesia emergence, occasional hypotension ) History of PONV No Hx of PONV and No Hx of Motion Sickness Social History Smoking Status: Never smoker Do You Dip or Chew Tobacco: No Hx Alcohol Use: No Hx Substance Use: Yes substance use type: marijuana (Hx medical card, no use 2016) Review of Systems Patient denies chest pain, shortness of breath, dyspnea on exertion, fever, chills, cough, wheezing, palpitations. Physical Exam Vital Signs BP 106/70 P 78 TEMP 98.8 SP02 99%RA RESP 16 Physical Full cervical extension range of motion. Full TMJ range of motion. TMD 3 finger breaths Mallampati Score I Dentition: intact Lungs: clear throughout to auscultation Cardiac: regular rate and rhythm, no murmurs noted Spine: normal Extremities: no LE edema Lab Results Anesthesia Preop Results Results Anesthesia Widget: WBC 8.56 K/ul (4.8-10.8) 02/23/24 Hgb 14.0 g/dl (12.0-16.0) 02/23/24 Hct 42.8 % (37.0-47.0) 02/23/24 Plt 217 K/uL (130-400) 02/23/24 Na 143 mmol/L (136-145) 02/23/24 K 3.7 mmol/L (3.5-5.1) 02/23/24 Cl 106 mmol/L (98-107) 02/23/24 CO2 29 mmol/L (21-32) 02/23/24 BUN 6 mg/dl (6-23) 02/23/24 Creat 0.84 mg/dl (0.6-1.2) 02/23/24 Glucose Level 84 mg/dl (70-99(Fasting)) 02/23/24 PT 10.3 Seconds (9.0-12.0) 03/05/24 PTT 26 Seconds (21-31) 03/05/24 INR 0.9 (0.9-1.1) 03/05/24 Urine Color Yellow 03/05/24 Urine Appearance Clear (Clear) 03/05/24 Urine pH 7.0 (4.5-7.5) 03/05/24 Urine Specific [place] 1.015 (1.000-1.030) 03/05/24 Urine Protein Negative (Negative) 03/05/24 Urine Glucose (UA) Negative (Negative) 03/05/24 Urine Ketones Negative (Negative) 03/05/24 Urine Blood Negative (Negative) 03/05/24 Urine Nitrite Negative (Negative) 03/05/24 Urine Bilirubin Negative (Negative) 03/05/24 Urine Urobilinogen Negative (Negative) 03/05/24 Urine Leukocyte Esterase Negative (Negative) 03/05/24 Blood Type A Positive 03/05/24 Antibody Screen NEGATIVE 03/05/24 Testing Electrocardiogram Date: 12/27/23 SR at 66bpm. Possible RVCD. No significant change compared to 11/2020 ECG per confirming provider. Echocardiogram Date: 09/24/21 EF 60-65%. No RWMA. No LVH. No significant valvular disease. Borderline LAD/RAD. Other Testing Chest CTA Date: 04/11/23 FINDINGS: Normal caliber thoracic aorta with no evidence for a dissection. No filling defects within the pulmonary arteries to suggest a pulmonary embolus. Li mited views of the upper abdomen demonstrate a normal liver, spleen, and adrenal glands. Postoperative changes consistent with a prior gastric bypass. The thyroid gland enhances normally. Normal caliber esophagus. No mediastinal or hilar lymphadenopathy. No pleural or pericardial effusions. No acute fractures. No pneumothorax. The central airways are patent. No focal lung consolidations to suggest a pneumonia. No evidence for pulmonary edema. IMPRESSION: No evidence for a pulmonary embolus.
[~2024-04-18 10:56] MED LIST changes: +ACETAMINOPHEN 500 MG TAB PO SCH; +CeleBREX 200 MG CAP PO SCH; +GABAPENTIN 900 MG DOSE PO SCH; +LR 60ML/HR IV SCH; -MIDAZOLAM HCL 1 MG/ML 2ML VIAL ONE; +ceFAZolin 2000MG 2,000 MG/15 ML SYR IV SCH; -fentaNYL citrate 100 MCG/2 ML VIAL ONE
[2024-04-18] MEDS: LR 60ML/HR IV SCH (12:10)
[2024-04-18] MEDS: CeleBREX 200 MG CAP PO SCH (12:12)
[2024-04-18] MEDS: ACETAMINOPHEN 500 MG TAB PO SCH (12:12)
[2024-04-18] MEDS: LR 15ML/HR IV SCH (12:14)
[2024-04-18] MEDS: GABAPENTIN 900 MG DOSE PO SCH (12:14)
[2024-04-18] MEDS: SCOPOLAMINE 1 MG/72 HR TDSY PATCH TD ONE ×2 (12:30→16:33)
--- NOTE | 2024-04-18 12:57 | History & Physical Bridge Note ---
Date of Service April 18, 2024 History & Physical Bridge Note I have examined the patient, reviewed the History & Physical and in the interval since the performance of the History & Physical I have noted the following changes of clinical significance: no changes noted
--- NOTE | 2024-04-18 12:59 | History & Physical Report ---
Date of Service April 18, 2024 Assessment & Plan (1) Neurogenic claudication due to lumbar spinal stenosis: Plan: L5-S1 decompression and fusion History of Present Illness Chief Complaint: Back and leg pain Primary Care Provider: BILL Perez This is a 33-year-old female status of chronic persistent back and leg pain after failing course of nonoperative care is here for surgical invention. Allergies Allergy/AdvReac Type Severity Reaction Status Date / Time barium sulfate Allergy Severe Swelling Verified 04/18/24 11:46 of Lip/Tongue/Throat sulfamethoxazole Allergy Severe Rash Verified 04/18/24 11:46 [From Bactrim] trimethoprim [From Bactrim] Allergy Severe Rash Verified 04/18/24 11:46 doxycycline Allergy Intermediate Rash Verified 04/18/24 11:46 iodine Allergy Intermediate hives and Verified 04/18/24 11:46 itching Penicillins Allergy Intermediate Itchiness Verified 04/18/24 11:46 fluconazole [From Diflucan] Allergy Lips/face Verified 04/18/24 11:46 swelling ciprofloxacin AdvReac Intermediate Upset Verified 04/18/24 11:46 stomach erythromycin base AdvReac Intermediate Upset Verified 04/18/24 11:46 stomach NSAIDS (Non-Steroidal AdvReac Intermediate Abdominal Verified 04/18/24 11:46 Anti-Inflamma Pain, "can't take" d/t gastric bypass prednisone AdvReac Intermediate Abdominal Verified 04/18/24 11:46 Pain, "can't take" d/t gastric bypass Sulfa (Sulfonamide AdvReac Intermediate Rash Verified 04/18/24 11:46 Antibiotics) Home Medications Medication Instructions Recorded Confirmed Type cyanocobalamin (vitamin B-12) 1,000 mcg PO UD 02/17/20 04/18/24 History 1,000 mcg tablet (Vitamin B-12) clonazepam 0.5 mg tablet 0.25 mg PO UD PRN Anxiety 07/18/20 04/18/24 History lamotrigine 200 mg tablet 200 mg PO QAM 05/05/21 04/18/24 History methylphenidate HCl 36 mg 36 mg PO BID 09/07/21 04/18/24 History tablet,extended release 24 hr (Concerta) albuterol sulfate 90 mcg/actuation 2 puff inhalation Q4 PRN Shortness 09/16/21 04/18/24 History aerosol inhaler Of Breath lamotrigine 100 mg tablet 100 mg PO QAM 08/15/22 04/18/24 History aripiprazole 15 mg tablet 15 mg PO QAM 11/26/22 04/18/24 History ondansetron HCl 4 mg tablet 4 mg PO Q8H PRN nausea and 01/31/23 04/18/24 Rx vomiting #90 tabs cholecalciferol (vitamin D3) 25 50 mcg PO QAM 04/13/23 04/18/24 History mcg (1,000 unit) tablet (Vitamin D3) levothyroxine 50 mcg tablet 50 mcg PO QAM #90 tabs 04/18/23 04/18/24 Rx buspirone 10 mg tablet 20 mg PO QAM 01/05/24 04/18/24 History tramadol 50 mg tablet 50 mg PO Q8H PRN pain #10 tabs 02/23/24 04/18/24 Rx ascorbic acid (vitamin C) 500 mg 500 mg PO QAM 02/29/24 04/18/24 History tablet (Vitamin C) ferrous sulfate 325 mg (65 mg 325 mg PO Q2D 02/29/24 04/18/24 History iron) tablet lidocaine 5 % topical patch 1 patch topical DAILY PRN Pain 02/29/24 04/18/24 History (Lidoderm) sumatriptan succinate 50 mg tablet 50 mg PO UD PRN Migraine Headache 02/29/24 04/18/24 History estradiol 1 mg tablet 1 mg PO QAM #90 tabs 03/18/24 04/18/24 Rx Past Med/Surg History Problem List (Updated 04/18/24 @ 12:59 by Cain Kinsey DO) Neurogenic claudication due to lumbar spinal stenosis Iron deficiency Disc degeneration, lumbosacral Vitamin B 12 deficiency Patellofemoral arthritis of left knee Obesity Hypothyroid Vitamin D deficiency (Acute) Irritable bowel syndrome with diarrhea (Acute) Inverted nipple (Acute) History of endometriosis Chronic cryptitis of tonsil (Acute) Atypical nevi (Acute) Migraine Pelvic pain in female (Acute) Orthostatic syncope (Acute) Medical History ADHD (attention deficit hyperactivity disorder), combined type Anxiety Asthma Stable Bipolar disorder Chronic cryptitis of tonsil Chronic low blood pressure Baseline BPs low 100s/50-60s Depression GERD without esophagitis Hypothyroidism Inverted nipple Iron deficiency Irritable bowel syndrome with diarrhea Occasional Low back pain Migraines Multiple thyroid nodules Bx showed it was actually lymph nodes per patient Numbness and tingling of left leg Obsessive compulsive disorder Post traumatic stress disorder Stomach ulcer 07/2022, "resolved" Trichotillomania Surgical History History of abdominal surgery Incisional Exploration with Scar Revision x2, Excision of Abdominal Wall Lipoma (09/09/22): [place] [facility] [place] History of anesthesia reaction "Shaking" with anesthesia emergence, occasional hypotension History of appendectomy History of bilateral tubal ligation History of colonoscopy History of esophagogastroduodenoscopy (EGD) History of Skye fundoplication 2012 Dr. Mendez History of surgery on left wrist [facility] History of surgical removal of ganglion cyst Left foot History of tonsillectomy History of tooth extraction Hx of total hysterectomy [facility] [place] Nausea and vomiting after administration of anesthetic agent S/P bilateral oophorectomy LSO during hysterectomy, RSO 2016 S/P hammer toe correction right foot Status post gastric bypass for obesity + undo hiatal hernia ([facility] [place] 2019) Family History Family/Other Family history of diabetes mellitus Unknown Thyroid disorder Congestive heart failure Diabetes Aunt Diabetes Grandmother Hypertension Uncle Myocardial infarction Denies family history of Ovarian cancer Prostate cancer Breast cancer Lung cancer Colorectal cancer Stroke Social History Smoking Status: Never smoker Second Hand Exposure: No; Do You Dip or Chew Tobacco: No; Tobacco Cessation Education Requested by Patient: No Hx Alcohol Use: No Hx Substance Use: Yes Preferred Language: Lithuanian Communication Ability: Effective Visual Impairment: No Limitations Hearing Ability: Normal Hand Reamer Required: No Beliefs That Will Affect Care: None marital status: Current Living Situation: Family and Significant Other Current Living Situation Comment: BOYFRIEND , DAUGHTER AND BOYFRIEND'S DAUGHTER current occupational status: employed current occupation: Medical office How many Children do You have: 1 Other Information That Helps Us Care for You: No Feels Safe at Home: Yes Safety Concerns: Feels Safe At This Time Diet: regular caffeine: Yes during the past year weight has: remained stable Dental Care, Regularly: Yes Physical Activity Frequency: Does not Exercise Seatbelt Use: always Sunscreen Use: No Assistive Devices: Glasses and Other Assistive Devices Comment: wears wig Physical Exam Physical Exam: Patient is alert and oriented Heart regular rhythm Lungs clear Results & Data Results & Data Vital Signs (Past 12 Hours) Vital Signs Temp Pulse Resp BP Pulse Ox O2 Del Method 04/18/24 11:49 36.8 C 72 20 123/72 100 Room Air
[2024-04-18] MEDS ORDERED: ATROPINE SULFATE 0.1 MG/ML 10ML SYR IV PRN (13:03)
[2024-04-18] MEDS ORDERED: ePHEDrine sulfate 50 MG/ML AMP IV PRN (13:03)
[2024-04-18] MEDS ORDERED: MIDAZOLAM HCL 1 MG/ML 2ML VIAL ONE (13:24)
[2024-04-18] MEDS ORDERED: fentaNYL citrate PF 100 MCG/2 ML VIAL ONE (13:24)
[2024-04-18] MEDS: ceFAZolin 2000MG 2,000 MG/15 ML SYR IV SCH ×2 (13:33→20:55)
[2024-04-18] MEDS ORDERED: LIDOCAINE 2% 2 ML VIAL/AMP(20MG/ML) INFIL ONE (13:51)
[2024-04-18] MEDS ORDERED: PROPOFOL IV EMULSION 10 MG/ML 20 ML VIAL IV ONE (13:51)
[2024-04-18] MEDS ORDERED: ROCURONIUM BROMIDE 10 MG/ML 5 ML VIAL IV ONE (13:51)
[2024-04-18] MEDS ORDERED: ONDANSETRON INJ 2 MG/ML 2 ML VIAL ONE (13:55)
[2024-04-18] MEDS ORDERED: DEXAMETHASONE SOD INJ 4 MG/ML VIAL ONE (13:55)
[2024-04-18] MEDS: BUPIVACAINE/EPINEPHRINE 0.25% 1:200,000 30 ML VIAL ONE (14:16)
[2024-04-18] MEDS: FLOSEAL HEMOSTATIC MATRIX 10ML TOP ONE (14:47)
[2024-04-18] MEDS ORDERED: NEOSTIGMINE METHYLSULFATE 1 MG/ML 10ML VIAL ONE (14:49)
[2024-04-18] MEDS ORDERED: GLYCOPYRROLATE 0.2 MG/ML VIAL ONE (14:49)
--- NOTE | 2024-04-18 14:58 | Operative Report ---
Post Operative Report Pre & Post Diagnosis Operation Date: 04/18/24 12:55 Pre-Op Diagnosis: Neurogenic Claudication due to Lumbar Spinal Stenosis L5-S1 Post-Op Diagnosis: Neurogenic Claudication due to Lumbar Spinal Stenosis L5-S1 I identified the patient and participated in the time-out.: Yes Procedure Operation Date: 04/18/24 12:55 Actual Procedures #1 lumbar decompression with bilateral medial facetectomies and foraminotomies L5-S1. #2 posterior spinal fusion L5-S1. #3 placement posterior instrumentation L5-S1. #4 interbody fusion L5-S1. #5 placement of Spira 11 x 26 mm x 2 at L5-S1. #6 placement locally harvested morselized autograft posterior gutters. #7 placement infuse collagen sponge combined with Koros in the posterior lateral gutters and os design in the interbody space. #8 application of versa wrap over the exposed dura. Surgeon Cain Kinsey, DO Field Court Researcher Yvonne Walters Estimated Blood Loss 50 Findings See Below The patient is 5 foot 5 weighing over 91 kg with a BMI in excess of 33. The patient's body was did contribute to significant technical difficulty with positioning exposure and the procedure itself and at least 50% increased operative time. Specimens None Indications This is a 33-year-old female presents publish diagnosis after failing course of nonoperative care is here for surgical invention. Description of Procedure Patient was met with identified informed consent obtained. Patient was then taken to the operative suite underwent intubation placed in a prone position on the Jeferson table on top of the Victoriano frame. All bony promises well-padded eyes inspected to ensure no external pressure placed upon them. This point the lumbar spine was prepped and draped in the normal sterile fashion. Sharp dissection with the assistance of a regards from down to and exposing the lamina transverse processes of L5 and the sacral ala bilaterally. From caudal cephalad fashion complete laminectomy of L5 was performed including bilateral medial facetectomies and foraminotomies addressing all spinal stenosis. Pedicle screws were then placed in L5 and S1 bilaterally with the assistance of fluoroscopy appropriate size tonya placed. By way of transforaminal approach on the right discectomy of L5-S1 was performed endplates corrected to subcortical bleeding bone and 11 x 26 mm Spira cage filled with os design bone graft tapped into position. I then proceeded to the transforaminal region at L5-S1 the left. Again discectomy performed endplates guarded to subcortical mean bone and a second 11 x 26 mm Spira cage filled with os designed tapped into position. The rods were then locked in final position bilaterally. The transverse processes of L5 and the sacral ala burred to subcortical and bone. Infuse collagen sponge, with Koros and local autograft placed in the posterior lateral gutters. Versa wrap placed over the exposed dura. 15 round LETTY drain inserted. The incision was then closed with 1 Vicryl fascia 2-0 Vicryl subcutaneously and 4 Monocryl for final skin closure. Steri-Strips sterile dressing placed. Patient waken taken to PACU in stable condition. Please note spinal cord monitoring was utilized at the procedure no changes noted. Yvonne Walters was present out the entire procedure and brought the patient positioning complex portions of the surgery and final skin closure. Im ordering 20 grams of Triple [place] Collagen Powder ([employer] [id number]) to treat an incision wound that was caused by a spine procedure. The incision is approximately 2 cm(W) x 4 cm(L) into the joint (D) in size and is a full thickness wound. Triple [place] collagen comes in 1 gram packets so 20 packets were ordered. Given the size of the wound, with light to moderate exudate I chose to order a 20 day supply. The patient will be provided instructions for proper application of the collagen wound kit. The patient will be asked to apply the collagen powder daily and then cover it with sterile dressings dispensed. Collagen was selected as I expect the collagen to attract monocytes and fibroblasts, act as a sacrificial substrate for MMPs, and ultimately proved a matrix for tissue and vessel growth. The collagen will act as a primary dressing in this scenario. It is medically necessary for proper healing of these wounds to improve bioavailability and contact with each wound surface, this is also to help prevent infection of wounds and promote healing ultimately leading to a better healing outcome and limit the risk of infection. I attest to the content of the Intraoperative Record and any orders documented therein. Any exceptions are noted below.
--- NOTE | 2024-04-18 15:06 | Fluoroscopy Report ---
FL lumbar spine 2-3V CLINICAL HISTORY: L5-S1 DECOMPRESSION AND FUSION COMPARISON STUDY: Lumbar spine MRI February 23, 2024. FLUOROSCOPY TIME: 18 seconds. Ka,r: 15.56 mGy FLUOROSCOPIC IMAGES: 2 FINDINGS: Fluoroscopy was provided during L5-S1 decompression and fusion with interbody spacer placem ent. The hardware is intact. There are no unexpected radiopaque foreign bodies. IMPRESSION: Fluoroscopy provided during L5-S1 decompression and fusion. ACT 112: Negative or not required by law. Electronically signed by: Vikas Mccoy M.D. 04/18/2024 3:05 PM
[2024-04-18] MEDS: HYDROmorphone INJ 2 MG/ML SYR/VIAL IV PRN (15:18)
--- NOTE | 2024-04-18 15:48 | Anesthesiology Progress Note ---
Date of Service April 18, 2024 Anesthesia Post Procedure Vital Signs Vital Signs: Temp Pulse Resp BP Pulse Ox O2 Del Method O2 Flow Rate 04/18/24 15:45 74 16 129/79 95 Room Air 04/18/24 15:35 80 16 123/88 96 Oxymask 5 04/18/24 15:25 83 18 124/77 100 Oxymask 5 04/18/24 15:15 36.7 C 104 H 18 103/83 97 Oxymask 5 04/18/24 11:49 36.8 C 72 20 123/72 100 Room Air Pain Intensity Lower Back: Pain Intensity: 5 Transfer of Care Handoff Completed per policy Notes Mental Status: alert / awake / arousable Patient Amnestic to Procedure: Yes Nausea / Vomiting: adequately controlled Pain: adequately controlled Airway Patency, RR, SpO2: stable & adequate BP & HR: stable & adequate Hydration State: stable & adequate Anesthetic Complications: no major complications apparent
[2024-04-18] MEDS ORDERED: NALOXONE HCL 0.4 MG/1 ML VIAL/CARP IV PRN (16:29)
[2024-04-18] MEDS ORDERED: ALBUTEROL HFA 8 GM INHALER INH PRN (16:29)
[2024-04-18] MEDS ORDERED: bisacodyL 10 MG SUPP PR PRN (16:29)
[2024-04-18] MEDS ORDERED: ACETAMINOPHEN 500 MG TAB PO PRN (16:29)
[2024-04-18] MEDS ORDERED: LORazepam 0.5 MG TAB PO PRN (16:29)
[2024-04-18] MEDS ORDERED: MAGNESIUM HYDROXIDE SUSP 30 ML UDC PO PRN (16:29)
[2024-04-18] MEDS ORDERED: ONDANSETRON INJ 2 MG/ML 2 ML VIAL IV PRN (16:29)
[2024-04-18] MEDS ORDERED: PROMETHAZINE 12.5 MG/50.5 ML BAG IV PRN (16:29)
[2024-04-18] MEDS ORDERED: SUMAtriptan succinate 50 MG TAB PO PRN (16:29)
[2024-04-18] MEDS ORDERED: SOD PHOSPHATE/SOD BIPHOSPHATE ENEMA 132 ML BTL PR PRN (16:29)
[2024-04-18] MEDS ORDERED: clonazePAM 0.5 MG TAB PO PRN (16:29)
[2024-04-18] MEDS ORDERED: FAMOTIDINE 20 MG TAB PO PRN (16:29)
[2024-04-18] MEDS ORDERED: diphenhydrAMINE Capsule 25 MG CAP PO PRN (16:29)
[2024-04-18] MEDS ORDERED: hydrOXYzine HCl 25 MG TAB PO PRN (16:29)
[2024-04-18] MEDS ORDERED: ALUMINUM/MAGNESIUM SUSP 30 ML UDC PO PRN (16:29)
[2024-04-18] MEDS ORDERED: DO NOT ADMINISTER FLU VACCINE PRN (16:29)
[2024-04-18] MEDS ORDERED: METOCLOPRAMIDE HCL INJ 5 MG/ML 2 ML VIAL IV PRN (16:29)
[2024-04-18] MEDS ORDERED: DO NOT ADMINISTER PNEUMOCOCCAL VACCINE PRN (16:29)
[2024-04-18] MEDS ORDERED: LORazepam 2 MG/1 ML VIAL IV PRN (16:29)
[2024-04-18] MEDS ORDERED: ONDANSETRON 4 MG OD TAB PO PRN (16:29)
[2024-04-18] MEDS ORDERED: ACETAMINOPHEN 1,000 MG/100 ML VIAL IV PRN (16:29)
[2024-04-18] MEDS ORDERED: HYDROmorphone INJ 1 MG/ML SYRINGE IV PRN (16:29)
[2024-04-18] MEDS: ceFAZolin 330 MG/ML 1 GM VIAL ONE (16:34)
[2024-04-18] MEDS: CHECK SCOPOLAMINE PATCH PLACEMENT SCH (16:35)
[2024-04-18] MEDS: oxyCODONE HCL IR 5 MG TAB (IMMEDIATE RELEASE) PO PRN (17:37)
[2024-04-18] MEDS: DOCUSATE SODIUM/SENNA 50/8.6MG TAB PO SCH (20:55)
[2024-04-19] MEDS: POLYETHYLENE (MIRALAX) 17 GM PACK PO SCH (05:29)
[2024-04-19] MEDS: LEVOTHYROXINE SODIUM 50 MCG TABLET PO SCH (05:30)
[2024-04-19] MEDS: HYDROmorphone INJ 0.5 MG/0.5 ML SYR IV PRN (05:31)
[2024-04-19] MEDS: ARIPiprazole 15 MG TAB PO SCH (07:23)
[2024-04-19] MEDS: ASCORBIC ACID 500 MG TAB PO SCH (07:23)
[2024-04-19] MEDS: busPIRone 5 MG TAB PO SCH (07:23)
[2024-04-19] MEDS: lamoTRIgine 100 MG TAB PO SCH ×2 (07:24→07:25)
[2024-04-19] MEDS: FERROUS SULFATE 325 MG TAB PO SCH (07:24)
[2024-04-19] MEDS: CHOLECALCIFEROL 25 MCG (1000 UNITS) TAB PO SCH (07:24)
[2024-04-19] MEDS: estradioL 1 MG TAB PO SCH (07:24)
[2024-04-19] MEDS: dexAMETHasone 6 MG in SYRINGE 0 ML IV SCH (07:25)
[2024-04-19 07:34] LABS: Basophils # (auto) 0.01 K/uL (0.00-0.20); Basophils % (auto) 0.1 %; Hemoglobin 11.4 g/dl (12.0-16.0); Immature Granulocytes # (auto) 0.09 K/uL (0.01-0.20); Immature Granulocytes % (auto) 0.6 %; Lymphocytes # (auto) 1.23 K/uL (1.20-3.40); Lymphocytes % (auto) 8.4 %; Mean Corpuscular Hgb Conc 33.5 g/dL (32.0-36.0); Mean Corpuscular Volume 89.5 fL (80.0-100.0); Mean Platelet Volume 11.2 fL (9.4-12.4); Monocytes # (auto) 0.98 K/uL (0.11-0.59); Monocytes % (auto) 6.7 %; Neutrophils # (auto) 12.28 K/uL (1.40-6.50); Neutrophils % (auto) 84.2 %; Platelet Count 207 K/uL (130-400); RDW Coefficient of Variation 12.3 % (11.5-14.5); RDW Standard Deviation 40.5 fL (36.4-46.3); White Blood Count 14.59 K/ul (4.8-10.8)
[2024-04-19 07:42] LABS: BUN Creatinine Ratio 9.7 (10-20); Calcium 8.7 mg/dl (8.6-10.3); Creatinine Clr Calc Pharmacy 123.1 ml/min; Potassium 4.1 mmol/L (3.5-5.1)
--- NOTE | 2024-04-19 11:31 | Hospitalist Consultation ---
Date of Consultation April 19, 2024 Assessment & Plan (1) Neurogenic claudication due to lumbar spinal stenosis: This is a 33 year old female with past medical history of iron deficiency, hypothyroidism, IBS who presented to the hospital on 04/18 for elective spinal surgery with Dr. Kinsey. Pain management, DVT prophylaxis, and Bowel regimen per primary team. (2) Iron deficiency: Continue Ferrous sulfate. (3) Hypothyroid: Last TSH checked 12/2023 wnl at 1.279 continue synthroid. Plan Chronic conditions: Mental health: Continue Abilify, Busbar, and Lamictal. DVT prophylaxis: SCD's. encourage ambulation diet: regular Disposition: per primary team Code status: full Thank you for this consult. At this time the hospital service will sign off. Please call us with any questions or concerns. History of Present Illness Attending Physician: Cain Kinsey, DO History of Present Illness This is a 33 year old female with past medical history of iron deficiency, hypothyroidism, IBS who presented to the hospital on 04/18 for elective spinal surgery with Dr. Kinsey. The patient was seen this morning. She was sitting upright in her chair. She denied any complaints today. Reports to be feeling well and was able to ambulate in the hallway with PT this morning. She is anxious to be discharged from the hospital. As far as chronic conditions goes she routinely follows with her PCP and denies any additional complaints. She denies chest pain, shortness of deisy th, abdominal pain, or difficulty w/ urination. Allergies Allergy/AdvReac Type Severity Reaction Status Date / Time barium sulfate Allergy Severe Swelling Verified 04/18/24 11:46 of Lip/Tongue/Throat sulfamethoxazole Allergy Severe Rash Verified 04/18/24 11:46 [From Bactrim] trimethoprim [From Bactrim] Allergy Severe Rash Verified 04/18/24 11:46 doxycycline Allergy Intermediate Rash Verified 04/18/24 11:46 iodine Allergy Intermediate hives and Verified 04/18/24 11:46 itching Penicillins Allergy Intermediate Itchiness Verified 04/18/24 11:46 fluconazole [From Diflucan] Allergy Lips/face Verified 04/18/24 11:46 swelling ciprofloxacin AdvReac Intermediate Upset Verified 04/18/24 11:46 stomach erythromycin base AdvReac Intermediate Upset Verified 04/18/24 11:46 stomach NSAIDS (Non-Steroidal AdvReac Intermediate Abdominal Verified 04/18/24 11:46 Anti-Inflamma Pain, "can't take" d/t gastric bypass prednisone AdvReac Intermediate Abdominal Verified 04/18/24 11:46 Pain, "can't take" d/t gastric bypass Sulfa (Sulfonamide AdvReac Intermediate Rash Verified 04/18/24 11:46 Antibiotics) Home Medications Medication Instructions Recorded Confirmed Type cyanocobalamin (vitamin B-12) 1,000 mcg PO UD 02/17/20 04/18/24 History 1,000 mcg tablet (Vitamin B-12) clonazepam 0.5 mg tablet 0.25 mg PO UD PRN Anxiety 07/18/20 04/18/24 History lamotrigine 200 mg tablet 200 mg PO QAM 05/05/21 04/18/24 History methylphenidate HCl 36 mg 36 mg PO BID 09/07/21 04/18/24 History tablet,extended release 24 hr (Concerta) albuterol sulfate 90 mcg/actuation 2 puff inhalation Q4 PRN Shortness 09/16/21 04/18/24 History aerosol inhaler Of Breath lamotrigine 100 mg tablet 100 mg PO QAM 08/15/22 04/18/24 History aripiprazole 15 mg tablet 15 mg PO QAM 11/26/22 04/18/24 History ondansetron HCl 4 mg tablet 4 mg PO Q8H PRN nausea and 01/31/23 04/18/24 Rx vomiting #90 tabs cholecalciferol (vitamin D3) 25 50 mcg PO QAM 04/13/23 04/18/24 History mcg (1,000 unit) tablet (Vitamin D3) levothyroxine 50 mcg tablet 50 mcg PO QAM #90 tabs 04/18/23 04/18/24 Rx buspirone 10 mg tablet 20 mg PO QAM 01/05/24 04/18/24 History tramadol 50 mg tablet 50 mg PO Q8H PRN pain #10 tabs 02/23/24 04/18/24 Rx ascorbic acid (vitamin C) 500 mg 500 mg PO QAM 02/29/24 04/18/24 History tablet (Vitamin C) ferrous sulfate 325 mg (65 mg 325 mg PO Q2D 02/29/24 04/18/24 History iron) tablet lidocaine 5 % topical patch 1 patch topical DAILY PRN Pain 02/29/24 04/18/24 History (Lidoderm) sumatriptan succinate 50 mg tablet 50 mg PO UD PRN Migraine Headache 02/29/24 04/18/24 History estradiol 1 mg tablet 1 mg PO QAM #90 tabs 03/18/24 04/18/24 Rx oxycodone 5 mg tablet 5 mg PO Q6H PRN pain #30 tabs 04/19/24 Rx tramadol 50 mg tablet 50 mg PO Q6H PRN pain, moderate 04/19/24 Rx #30 tabs Patient History Medical History ADHD (attention deficit hyperactivity disorder), combined type Anxiety Asthma Stable Bipolar disorder Chronic cryptitis of tonsil Chronic low blood pressure Baseline BPs low 100s/50-60s Depression GERD without esophagitis Hypothyroidism Inverted nipple Iron deficiency Irritable bowel syndrome with diarrhea Occasional Low back pain Migraines Multiple thyroid nodules Bx showed it was actually lymph nodes per patient Numbness and tingling of left leg Obsessive compulsive disorder Post traumatic stress disorder Stomach ulcer 07/2022, "resolved" Trichotillomania Surgical History History of abdominal surgery Incisional Exploration with Scar Revision x2, Excision of Abdominal Wall Lipoma (09/09/22): [place] [facility] [place] of anesthesia reaction "Shaking" with anesthesia emergence, occasional hypotension History of appendectomy History of bilateral tubal ligation History of colonoscopy History of esophagogastroduodenoscopy (EGD) History of [place] fundoplication 2012 Dr. Mendez History of surgery on left wrist CC History of surgical removal of ganglion cyst Left foot History of tonsillectomy History of tooth extraction Hx of total hysterectomy [facility] [place] Nausea and vomiting after administration of anesthetic agent S/P bilateral oophorectomy LSO during hysterectomy, RSO 2016 S/P hammer toe correction right foot Status post gastric bypass for obesity + undo hiatal hernia ([facility] [place] 2019) Family History Family/Other Family history of diabetes mellitus Unknown Thyroid disorder Congestive heart failure Diabetes Aunt Diabetes Grandmother Hypertension Uncle Myocardial infarction Denies family history of Ovarian cancer Prostate cancer Breast cancer Lung cancer Colorectal cancer Stroke Social History Smoking Status: Never smoker Second Hand Exposure: No; Do You Dip or Chew Tobacco: No; Tobacco Cessation Education Requested by Patient: No Hx Alcohol Use: No Hx Substance Use: Yes Preferred Language: Frisian Communication Ability: Effective Visual Impairment: No Limitations Hearing Ability: Normal Felt Checker Required: No Beliefs That Will Affect Care: None marital status: Current Living Situation: Family and Significant Other Current Living Situation Comment: BOYFRIEND , DAUGHTER AND BOYFRIEND'S DAUGHTER current occupational status: employed current occupation: Medical office How many Children do You have: 1 Other Information That Helps Us Care for You: No Feels Safe at Home: Yes Safety Concerns: Feels Safe At This Time Diet: regular caffeine: Yes during the past year weight has: remained stable Dental Care, Regularly: Yes Physical Activity Frequency: Does not Exercise Seatbelt Use: always Sunscreen Use: No Assistive Devices: Glasses and Other Assistive Devices Comment: wears wig Physical Exam Constitutional: WD/WN, vitals as above Respiratory: normal respiratory effort, lungs clear to auscultation Cardiovascular: RRR, no murmur, no edema Psychiatric: A+Ox3, euthymic affect Results & Data Results & Data Vital Signs (Past 12 Hours) Vital Signs Temp Pulse Resp BP Pulse Ox O2 Del Method 04/19/24 03:36 37.4 C 76 12 95/60 L 93 Room Air PG Care Time/CCT Total # of Minutes Spent Total Time Spent with Patient: Total time spent is greater than 50% in coordination of care (as documented) at patient's floor/unit and/or counseling patient: Coding Level of Care Code 37195 IN/OBS CONSULT LVL 2,35M Diagnoses Neurogenic claudication due to lumbar spinal stenosis M48.062 Iron deficiency E61.1 Hypothyroid E03.9
--- NOTE | 2024-04-19 14:32 | Orthopedic Progress Note ---
Date of Service April 19, 2024 Assessment & Plan (1) Neurogenic claudication due to lumbar spinal stenosis: Plan: At this time we will continue physical therapy monitor LETTY output anticipate discharge home in the next few days. Admission and Anticipated Discharge Date Admission Date: April 18, 2024 Subjective Patient's back pain is controlled. She is ambulating well. Denies any leg pain. Physical Exam Physical Exam: Patient is in the chair at the bedside. Is good strength testing. Results & Data Vital Signs (Past 12 Hours) Vital Signs Temp Pulse Resp BP Pulse Ox O2 Del Method 04/19/24 03:36 37.4 C 76 12 95/60 L 93 Room Air Queries Orthopedic Spine Obesity: Yes
[2024-04-19 14:44] VITALS: RESP 16
[2024-04-19] MEDS: traMADol HCL 50 MG TABLET PO PRN (18:38)
[2024-04-20 07:28] VITALS: BP 105/71; PULSE 61; TEMP 98.4; O2SAT 98
--- NOTE | 2024-04-20 08:41 | Discharge Summary ---
Date of Service April 20, 2024 Admission HPI Per Admitting Provider This is a 33-year-old female status of chronic persistent back and leg pain after failing course of nonoperative care is here for surgical invention. Admission Exam (Per Admitting) Constitutional WD/WN, vitals as above Eyes normal visual dent by confrontation ENMT external ear and nose normal, oropharynx normal Neck normal visual inspection Respiratory normal respiratory effort Cardiovascular Extremities: normal capillary refill Gastrointestinal (Abdomen) Inspection/Auscultation: abdomen normal to inspection Musculoskeletal Extremities: extremities normal to inspection and strength 5/5 throughout Gait: normal gait Skin no rashes, warm and dry Neurologic normal touch/pain/proprioception and moves all extremities Psychiatric A+Ox3, euthymic affect Eye Contact: good eye contact Discharge Data Consultations 04/18/24 16:29 Consult Hospitalist Routine Procedures Performed Operation Date: 04/18/24 12:55 Actual Procedures p L5-S1 Decompression and Fusion, Interbody Fusion L5-S1 with Application of Bone Morphogenetic Protein MagnetOS bone graft with Versawrap, Spinal Cord Monitoring(Not Applicable) - Cain Kinsey DO Hospital Course (1) Neurogenic claudication due to lumbar spinal stenosis: She will is being discharged home on postoperative day 2 status post lumbar decompression and fusion of L5-S1. She had an uneventful hospital course. Lab findings have been stable. Pain is controlled. She had a bowel movement. She is going home with her LETTY drain intact. She has been instructed on recording the output and will call our office 48 hours from now with recordings and set up a date and time for removal. Discharge Instructions ACTIVITY RECOMMENDATIONS: SELF CARE INSTRUCTIONS AFTER THORACIC/LUMBAR FUSIONS 1. You may walk to your tolerance. It is good exercise for your legs and back. Expect some back and intermittent leg aches and pains. 2. You may perform "counter-top" level activities (make a sandwich, bianca with a project, etc.). 3. No bending or lifting of more than 10 pounds or back twisting of any nature (roll like a log when turning in bed). 4. You may ride in a car for 20-30 minutes at a time. No driving until after your first visit with your doctor. 5. Frequent changes of position and restricting sitting to 30 minutes at a time will help limit the amount of back spasms and stiffness you may experience. 6. You may discontinue the use of ambulatory aids (cane, crutches, etc.) once your strength and confidence allow. 7. You may delinquent tax collection assistant the shower and let water strike your incision when you arrive home at least once daily. Do not take a tub bath, sit in a hot tub or go into a swimming pool until after your first recheck in the office. 8. You may resume previous diet. SPECIAL CARE INSTRUCTIONS: VERY IMPORTANT TO READ AND REVIEW A. Your surgical incision has been closed with a cosmetic suture under the skin that will dissolve in about 6 weeks. In 14 days, you can use a pair of clean scissors and cut the suture that is left outside of the skin at the ends of your incision. 1. The small skin tapes can be removed 7 days after surgery if they have not fallen off by that point. 2. You may keep the wound open to air as much as possible to promote healing after post-op day number 5 unless told otherwise by your doctor. 3. If you think the wound looks like it is becoming infected (redness or worsening drainage) and/or you are experiencing fever, chill or worsening back pain and muscle spasms, contact the office so that we may evaluate you as soon as possible. B. Complications are uncommon, but please contact us if you have any signs or symptoms of: 1. wound infection (fever higher than 102.5 degrees F, redness, separation of wound, drainage, or increasing pain from the incision) 2. blood clots in legs (pain, swelling, redness and warmth in legs) 3. urinary tract infection (fever higher than 102.5 degrees F, burning upon urination or increased frequency of urination) 4. nerve problems (inability to walk on your toes or heels, numbness, loss of bowel or bladder control) 5. any other symptoms that concern you C. Please call the office at if you have any concerns or questions about your operation or recovery. D. No smoking! Smoking drastically decreases the chance of a solid fusion. E. Do not take any anti-inflammatory medications (Indocin, Advil, Motrin, Aspirin, Naprosyn, etc.) as these may inhibit the chance of a solid fusion. Tylenol is okay to take for pain. MANAGING PAIN AFTER SPINAL SURGERY 1. Narcotic medication is intended for short-term use and will be provided for surgical pain. Surgical pain usually lasts for a period of 4-6 weeks. Narcotic medication includes Percocet, Vicodin, Darvocet, Tylenol #3 or Lortab. 2. Longer-term pain is more appropriately treated with non-narcotic medication such as Tylenol ES. 3. Muscle spasm is not appropriately treated with narcotics. Muscle relaxers such as Soma, Flexeril or Skelaxin can be used along with Tylenol ES. 4. Remember that we all live with some "aches and pains". This is not unusual or uncommon after an injury or as we get older. a. Back pain is expected and may include muscle spasms for 4 to 6 weeks after surgery. The pain should gradually improve. If the pain worsens for no apparent reason, please contact the office. b. Intermittent leg pain may also be experienced and should not be concerned about unless it worsens for no apparent reason. If so, please contact the office. 5. We will provide appropriate medication within the normal guidelines of their prescribed use. We will also be very cautious and aware of potential abuse and extended duration of patients' medication needs. a. Pain medications are for your comfort and to assist with sleep and rest so that the tissue can heal. They are not provided in order to return to normal activity and should not be used through the day. To do so or worsening pain at night can result from ongoing tissue damage and development of tolerance to the prescribed medicine. 6. Please allow 2-3 days to process refills. Prescriptions will not be mailed but must be picked up at the office. FOLLOW UP VISIT: Keep your scheduled follow-up appointment. Any questions, please call the office at .
[2024-04-21] MEDS ORDERED: CYANOCOBALAMIN (B-12) 500 MCG TABLET PO SCH (09:00)
== END 2024-04-20 09:49 | disposition home or self-care (01) | DRG 402 ==
LOC: ASU 10:56 → 3W 15:01